=== PATIENT | female | born 1955 | race Caucasian/White ===

== ENCOUNTER 2022-12-18 06:01 | Emergency (ER) | payer BC, MEDICARE, OTHER, SELFPAY ==
[2022-12-18 06:10] VITALS: BP 149/68; PULSE 60; RESP 18; TEMP 36.5; O2SAT 97; BMI 32.3
--- NOTE | 2022-12-18 06:24 | DI.US.S_ITS ---
PROCEDURE: US ABDOMEN LIMITED INDICATIONS: RUQ TECHNIQUE: Real-time scanning was performed of the abdominal and retroperitoneal organs, with image documentation. COMPARISON: None. FINDINGS: Liver: Liver is enlarged and show heterogeneously increased liver parenchymal echotexture. Gallbladder: Multiple small stones are seen in dependent portion of gallbladder lumen. No gallbladder wall thickening or pericholecystic fluid. No sonographic Gil's sign. Biliary ducts: Intrahepatic bile ducts are non-dilated. Extrahepatic bile duct caliber measures 4.8 mm. Normal is 6-7 mm or less in diameter, or 10 mm or less post-cholecystectomy. Pancreas: Visualized portions of the pancreas are sonographically normal. IMPRESSION: 1. Cholelithiasis without sonographic evidence of acute cholecystitis. No biliary ductal dilatation. 2. Mild hepatomegaly and hepatic steatosis. Dictated by: Estrada Carias M.D. on 12/18/2022 at 8:14 Approved by: Estrada Carias M.D. on 12/18/2022 at 8:15
--- NOTE | 2022-12-18 06:25 | ED.ABDPAIN ---
HPI - Abdominal Pain <Elza Castanon DO - Last Filed: 12/18/22 18:51> General Chief Complaint: Abdominal Pain Stated Complaint: gallbladder attack Time Seen by Provider: 12/18/22 06:09 Source: patient Mode of arrival: Ambulatory History of Present Illness HPI narrative: Patient 67-year-old female history of breast cancer presenting today with right upper quadrant pain. She reports that she is previously had gallbladder attacks and she thinks that what this was. She had pain in her right upper quadrant nonradiating. Mild nausea no vomiting or fever. She reports that it has previously has gone away on its own. Tonight it lasts for about 2 hours she decided to come get checked out. She has had CTs for her breast cancer which have previously shown gallstones but he is never actually had her gallbladder checked out. She now feels silly for coming in because her pain has completely resolved. Related Data Home Medications Medication Instructions Recorded Confirmed Ciprofloxacin Hydrochloride (Cipro) ##0 07/13/10 KETOCONAZOLE (Nizoral) ##0 07/13/10 TRIAMCINOLONE 0.1% - ##0 07/13/10 (Kenalog) Allergies Allergy/AdvReac Type Severity Reaction Status Date / Time ciprofloxacin Allergy Verified 12/18/22 06:36 Sulfa (Sulfonamide Allergy Verified 12/18/22 06:36 Antibiotics) Review of Systems <DO Mohit Chicas Last Filed: 12/18/22 18:51> Review of Systems ROS Unobtainable: All systems reviewed & are unremarkable except as noted in HPI and below Patient History <DO Mohit Chicas Last Filed: 12/18/22 18:51> Social History Smoking Status: Never smoker Smoking Status: Never smoker Substance Use Type: does not use Exam <DO Mohit Chicas Last Filed: 12/18/22 18:51> Initial Vital Signs Initial Vital Signs: Vital Signs Temperature 97.7 F 12/18/22 06:10 Pulse Rate 60 12/18/22 06:10 Respiratory Rate 18 12/18/22 06:10 Blood Pressure 149/68 H 12/18/22 06:10 Pulse Oximetry 97 12/18/22 06:10 Oxygen Delivery Method Room Air 12/18/22 06:10 GENERAL: Alert very pleasant 67-year-old female and in no acute distress. HEENT: Head atraumatic,EOMI, pupils reactive, face symmetric, moist mucous membranes CARDIOVASCULAR: Regular rate and rhythm without murmurs, rubs or gallops. RESPIRATORY: Breath sounds equal bilaterally, no wheezes rales or rhonchi. ABDOMEN: Soft, mild tender right upper quadrant pain no guarding no rebound no epigastric EXTREMITIES: Normal range of motion, no clubbing or edema. Neurovascularly intact NEUROLOGICAL: Alert and oriented x4. SKIN: Warm, dry, no laceration, no petechiae, no rashes or lesions. <DO Mohit Aldridge Last Filed: 12/18/22 08:29> Initial Vital Signs Initial Vital Signs: Vital Signs Temperature 97.7 F 12/18/22 06:10 Pulse Rate 60 12/18/22 06:10 Respiratory Rate 18 12/18/22 06:10 Blood Pressure 149/68 H 12/18/22 06:10 Pulse Oximetry 97 12/18/22 06:10 Oxygen Delivery Method Room Air 12/18/22 06:10 Course <Elza Castanon DO - Last Filed: 12/18/22 18:51> Orders Ordered: Discontinued Medications Ondansetron HCl (Ondansetron 4 Mg/2 Ml Inj) 4 mg IV NOW ONE Stop: 12/18/22 06:25 Last Admin: 12/18/22 06:49 Dose: 4 mg Documented By: AP Vital Signs Vital signs: Vital Signs - 8 hr 12/18/22 06:10 12/18/22 07:56 12/18/22 07:58 Temperature 97.7 F Pulse Rate 60 46 L 45 L Respiratory Rate 18 Blood Pressure 149/68 H Pulse Oximetry 97 96 97 Oxygen Delivery Method Room Air 12/18/22 07:58 12/18/22 08:00 Temperature Pulse Rate 47 L Respiratory Rate Blood Pressure 144/65 H Pulse Oximetry 97 Oxygen Delivery Method Room Air <DO Mohit Aldridge Last Filed: 12/18/22 08:29> Orders Ordered: Discontinued Medications Ondansetron HCl (Ondansetron 4 Mg/2 Ml Inj) 4 mg IV NOW ONE Stop: 12/18/22 06:25 Last Admin: 12/18/22 06:49 Dose: 4 mg Documented By: AP Vital Signs Vital signs: Vital Signs - 8 hr 12/18/22 06:10 12/18/22 07:56 12/18/22 07:58 Temperature 97.7 F Pulse Rate 60 46 L 45 L Respiratory Rate 18 Blood Pressure 149/68 H Pulse Oximetry 97 96 97 Oxygen Delivery Method Room Air 12/18/22 07:58 12/18/22 08:00 Temperature Pulse Rate 47 L Respiratory Rate Blood Pressure 144/65 H Pulse Oximetry 97 Oxygen Delivery Method Room Air MDM - Abdominal Pain <Elza Castanon DO - Last Filed: 12/18/22 18:51> Lab Data 12/18/22 06:45 12/18/22 06:45 Labs: Lab Results 12/18/22 12/18/22 12/18/22 Range/Units 06:20 06:45 06:45 WBC 5.0 (4.5-11.0) X10^3/uL RBC 4.36 (4.0-5.2) X10^6/uL Hgb 12.7 (12.0-16.0) g/dL Hct 38.5 (36-46) % MCV 88.2 (80-100) fL MCH 29.0 (26-34) PG MCHC 32.9 (30-36) % RDW 13.8 (11.6-14.8) % Plt Count 156 (150-400) X10^3/uL Neut % (Auto) 57.2 (50-75) % Lymph % (Auto) 29.8 (25-40) % [place] % (Auto) 9.2 (3-14) % Eos % (Auto) 3.0 (2-4) % Baso % (Auto) 0.8 (0-2) % Neut # (Auto) 2800 (4214-1692) /uL Lymph # (Auto) 1500 (0296-8715) /uL [place] # (Auto) 500 (0-900) /uL Eos # (Auto) 100 (0-450) /uL Baso # (Auto) 0 (0-100) /uL Sodium 139 (137-145) mmol/L Potassium 4.0 (3.4-5.1) mmol/L Chloride 110 H (98-107) mmol/L Carbon Dioxide 22 (22-32) mmol/L BUN 16 (7-17) mg/dL Creatinine 0.69 (0.52-1.04) mg/dL Estimated GFR > 60 (>60) mL/min BUN/Creatinine Ratio 23.2 H (6-22) Glucose 120 H (80-110) mg/dL Calcium 8.9 (8.4-10.2) mg/dL Total Bilirubin 0.3 (0.2-1.3) mg/dL AST 24 (14-36) IU/L ALT 19 (<35) IU/L Alkaline Phosphatase 52 (38-126) U/L Total Protein 6.8 (6.3-8.2) g/dL Albumin 3.9 (3.5-5.0) g/dL Globulin 2.9 (1.7-4.1) g/dL Albumin/Globulin Ratio 1.3 (1.0-2.8) Lipase 158 (23-300) U/L Urine RBC 1-5/hpf (0-5/HPF) Urine WBC >100/hpf H (0-5/HPF) Ur Squamous Epith Cells 10-30 /hpf H (0-5/HPF) Urine Bacteria Many (>30) H (None) Ur Culture Indicated? Specimen cultured Point of care testing: Urine Dip Bedside Urine Glucose Negative Bedside Urine Bilirubin - Negative Bedside Urine Ketone - Negative Urine Specific [place] 1.030 Bedside Urine Occult Blood ++ Bedside Urine pH 6.0 Bedside Urine Protein - Negative Bedside Urine Urobilinogen - Negative Bedside Urine Nitrite + Positive Bedside Urine Leukocytes +++ 500 Esterase MDM Narrative Medical decision making narrative: 67-year-old female presents today with right upper quadrant pain that lasted for 2 hours and resolved. Labs and imaging pending. Signed out to Dr. Tavarez. Dr aparicio: Received turned over. Reviewed patient's history and physical exam and workup up to this point. She does have cholelithiasis without signs of acute cholecystitis on her ultrasound. Her LFTs and lipase her unremarkable. Her discomfort is much improved. She is not having any urinary symptoms. Plan to be is to discharge patient home with instructions to follow-up with general surgery to discuss an outpatient cholecystectomy. We will also wait for her urine culture to result before treating her with any antibiotics for potential urinary tract infection. She was given return precautions. She expressed understanding and agreement. <Bhavesh Aparicio, - Last Filed: 12/18/22 08:29> Lab Data Attestation: I reviewed the patient's lab results. Labs: Lab Results 12/18/22 12/18/22 12/18/22 Range/Units 06:20 06:45 06:45 WBC 5.0 (4.5-11.0) X10^3/uL RBC 4.36 (4.0-5.2) X10^6/uL Hgb 12.7 (12.0-16.0) g/dL Hct 38.5 (36-46) % MCV 88.2 (80-100) fL MCH 29.0 (26-34) PG MCHC 32.9 (30-36) % RDW 13.8 (11.6-14.8) % Plt Count 156 (150-400) X10^3/uL Neut % (Auto) 57.2 (50-75) % Lymph % (Auto) 29.8 (25-40) % [place] % (Auto) 9.2 (3-14) % Eos % (Auto) 3.0 (2-4) % Baso % (Auto) 0.8 (0-2) % Neut # (Auto) 2800 (5604-0958) /uL Lymph # (Auto) 1500 (3501-7132) /uL [place] # (Auto) 500 (0-900) /uL Eos # (Auto) 100 (0-450) /uL Baso # (Auto) 0 (0-100) /uL Sodium 139 (137-145) mmol/L Potassium 4.0 (3.4-5.1) mmol/L Chloride 110 H (98-107) mmol/L Carbon Dioxide 22 (22-32) mmol/L BUN 16 (7-17) mg/dL Creatinine 0.69 (0.52-1.04) mg/dL Estimated GFR > 60 (>60) mL/min BUN/Creatinine Ratio 23.2 H (6-22) Glucose 120 H (80-110) mg/dL Calcium 8.9 (8.4-10.2) mg/dL Total Bilirubin 0.3 (0.2-1.3) mg/dL AST 24 (14-36) IU/L ALT 19 (<35) IU/L Alkaline Phosphatase 52 (38-126) U/L Total Protein 6.8 (6.3-8.2) g/dL Albumin 3.9 (3.5-5.0) g/dL Globulin 2.9 (1.7-4.1) g/dL Albumin/Globulin Ratio 1.3 (1.0-2.8) Lipase 158 (23-300) U/L Urine RBC 1-5/hpf (0-5/HPF) Urine WBC >100/hpf H (0-5/HPF) Ur Squamous Epith Cells 10-30 /hpf H (0-5/HPF) Urine Bacteria Many (>30) H (None) Ur Culture Indicated? Specimen cultured Point of care testing: Urine Dip Bedside Urine Glucose Negative Bedside Urine Bilirubin - Negative Bedside Urine Ketone - Negative Urine Specific [place] 1.030 Bedside Urine Occult Blood ++ Bedside Urine pH 6.0 Bedside Urine Protein - Negative Bedside Urine Urobilinogen - Negative Bedside Urine Nitrite + Positive Bedside Urine Leukocytes +++ 500 Esterase Imaging Data US - abdomen: Radiologist's Impression: PROCEDURE:? US ABDOMEN LIMITED ? INDICATIONS:? RUQ ? TECHNIQUE:? Real-time scanning was performed of the abdominal and retroperitoneal organs, with image documentation.? ? COMPARISON:? None. ? FINDINGS:? ? Liver:? Liver is enlarged and show heterogeneously increased liver parenchymal echotexture. ? Gallbladder:? Multiple small stones are seen in dependent portion of gallbladder lumen.? No gallbladder wall thickening or pericholecystic fluid.? No sonographic Gil's sign. ? Biliary ducts:? Intrahepatic bile ducts are non-dilated.? Extrahepatic bile duct caliber measures 4.8 mm.? Normal is 6-7 mm or less in diameter, or 10 mm or less post-cholecystectomy.? ? Pancreas:? Visualized portions of the pancreas are sonographically normal.? ? ? IMPRESSION:? ? 1.? Cholelithiasis without sonographic evidence of acute cholecystitis.? No biliary ductal dilatation. ? 2.? Mild hepatomegaly and hepatic steatosis. MDM Narrative Medical decision making narrative: Dr aparicio: Received turned over. Reviewed patient's history and physical exam and workup up to this point. She does have cholelithiasis without signs of acute cholecystitis on her ultrasound. Her LFTs and lipase her unremarkable. Her discomfort is much improved. She is not having any urinary symptoms. Plan to be is to discharge patient home with instructions to follow-up with general surgery to discuss an outpatient cholecystectomy. We will also wait for her urine culture to result before treating her with any antibiotics for potential urinary tract infection. She was given return precautions. She expressed understanding and agreement. Discharge Plan Departure Patient Disposition: Home Clinical Impression: Abdominal pain, Cholelithiasis Instructions: Gallstones Activity Restrictions/Additional Instructions: Continue to take all of your medications as directed. Contact the general surgery department at the number provided below for follow-up and also contact your primary doctor for follow-up. Return to the emergency department for new or worsening symptoms. Prescriptions: No Action Ciprofloxacin Hydrochloride (Cipro) Qty: 0 KETOCONAZOLE (Nizoral) Qty: 0 TRIAMCINOLONE 0.1% - (Kenalog) Qty: 0 Referrals: Pedrito Person MD [Physician] - Stand Alone Forms: Patient Portal/API
[2022-12-18] MEDS: ONDANSETRON 4 MG/2 ML INJ IV (06:49)
[2022-12-18 06:54] LABS: Add Manual Diff / Slide Review NO; Basophils Absolute Auto 0 /uL (0-100); Basophils Percent Auto 0.8 % (0-2); Eosinophils Absolute Auto 100 /uL (0-450); Hematocrit 38.5 % (36-46); Hemoglobin 12.7 g/dL (12.0-16.0); Lymphocytes Absolute Auto 1500 /uL (1100-4500); Lymphocytes Percent Auto 29.8 % (25-40); Mean Corpuscular HGB Conc 32.9 % (30-36); Mean Corpuscular Volume 88.2 fL (80-100); Monocytes Absolute Auto 500 /uL (0-900); Monocytes Percent Auto 9.2 % (3-14); Neutrophils Absolute Auto 2800 /uL (1500-7000); Neutrophils Percent Auto 57.2 % (50-75); Platelet Count 156 X10^3/uL (150-400); Red Blood Cell Count 4.36 X10^6/uL (4.0-5.2); Red Cell Distribution Width 13.8 % (11.6-14.8)
[2022-12-18 06:58] LABS: Bacteria Urine Many (>30); Culture Indicated Urine Specimen Cultured; RBC Urine 1-5/HPF (0-5/HPF); Squamous Epithelial Cell Urine 10-30 /HPF (0-5/HPF); WBC Urine >100/HPF (0-5/HPF)
[2022-12-18 07:06] LABS: Alanine Aminotransferase 19 IU/L (<35); Albumin 3.9 g/dL (3.5-5.0); Albumin Globulin Ratio 1.3 (1.0-2.8); Alkaline Phosphatase 52 U/L (38-126); Aspartate Aminotransferase 24 IU/L (14-36); BUN Creatinine Ratio 23.2 (6-22); Bilirubin Total 0.3 mg/dL (0.2-1.3); Blood Urea Nitrogen 16 mg/dL (7-17); Calcium 8.9 mg/dL (8.4-10.2); Carbon Dioxide 22 mmol/L (22-32); Chloride 110 mmol/L (98-107); Estimated Glomerular Filt Rate > 60 mL/min (>60); Globulin 2.9 g/dL (1.7-4.1); Glucose 120 mg/dL (80-110); HEMOLYSIS < 15 (0-50); Lipase 158 U/L (23-300); Sodium 139 mmol/L (137-145); Total Protein 6.8 g/dL (6.3-8.2)
[2022-12-18 07:56] VITALS: PULSE 46; O2SAT 96
[2022-12-18 07:58] VITALS: BP 144/65; PULSE 45; O2SAT 97
[2022-12-18 08:00] VITALS: PULSE 47; O2SAT 97
[2022-12-18 08:30] VITALS: PULSE 49; O2SAT 95
[2022-12-18 08:33] VITALS: BP 133/64; PULSE 49; TEMP 36.7; O2SAT 97
== END 2022-12-18 08:39 | disposition home or self-care (01) ==
PROVIDERS: Emergency Medicine; Emergency Provider Emergency Medicine
DX: K80.20 Calculus of gallbladder without cholecystitis without obstruction (principal); B96.20 Unspecified Escherichia coli [E. coli] as the cause of diseases classified elsewhere
CPT/HCPCS: 76705; 80053; 81003; 81015; 83690; 85025; 87077; 87086; 87186; 96374; 99284; J2405

== ENCOUNTER → 2023-09-28 14:09 | Outpatient (CLI) | payer MEDICARE, OTHER, SELFPAY ==
--- NOTE | 2023-09-28 14:13 | DI.US.S_ITS ---
PROCEDURE: US PERIPH VENOUS LOW EXTREM RT INDICATIONS: mass in lower TECHNIQUE: Real-time imaging, as well as color and pulse Doppler interrogation, were performed of the lower extremity deep veins from the inguinal ligament to the popliteal fossa, with documentation of the visualized calf veins. COMPARISON: None. FINDINGS: The common femoral, femoral, popliteal, and the visualized calf veins are normally compressible, and free of intraluminal thrombus. Color and pulse Doppler demonstrate normal phasic intraluminal flow. There is normal augmentation response to distal compression maneuver. Incidentally, there is superficial thrombus noted in a superficial venous varicosity in the mid to distal calf IMPRESSION: No evidence of deep venous thrombosis, right lower extremity. Superficial venous varicosity thrombosis Approved by: Mauro Ross M.D. on 09/28/2023 at 18:03
== END ==
PROVIDERS: Referring Provider Nurse Practitioner Family; Visit Provider Nurse Practitioner Family
DX: I82.811 Embolism and thrombosis of superficial veins of right lower extremity (principal); R22.41 Localized swelling, mass and lump, right lower limb
CPT/HCPCS: 93971

== ENCOUNTER → 2023-10-18 09:10 | Outpatient (CLI) | payer MEDICARE, OTHER, SELFPAY | PROVIDERS: PCP Family Medicine; Visit Provider Family Medicine | DX: R31.29 Other microscopic hematuria (principal) | CPT/HCPCS: 87086 ==

== ENCOUNTER → 2023-10-21 11:27 | Outpatient (CLI) | payer MEDICARE, OTHER, SELFPAY ==
--- NOTE | 2023-10-21 11:28 | DI.RAD.S_ITS ---
PROCEDURE: XR DEXA AXIAL SKELETON INDICATIONS: post menopausal COMPARISON: None. FINDINGS: Lumbar Spine: Bone mineral density 0.837 g/cm2, T score -1.9. Left Hip: Bone mineral density 0.804 g/cm2, T score -1.1. Left Femoral Neck: Bone mineral density 0.713 g/cm2, T score -1.2. Right Hip: Bone mineral density 0.816 g/cm2, T score -1.0. Right Femoral Neck: Bone mineral density 0.783 g/cm2, T score -0.6. Fracture Risk Calculation (when applicable): 10-year fracture risk of a major osteoporotic fracture 8.0% and of a hip fracture 0.7%. (T score greater or equal to -1.0 to: NORMAL) (T score from -1.1 to -2.4: OSTEOPENIA) (T score less than or equal to -2.5: OSTEOPOROSIS) IMPRESSION: Osteopenia Follow-up guidelines as follows: Osteoporosis: Consider a repeat DEXA and Vertebral Fracture Assessment (VFA) exam in 2 years or sooner if medically necessary, to reassess this patient's status. Osteopenia: Consider a repeat DEXA in 2-3 years to reassess this patient's status, or if there is a new clinical indication. Normal: Consider a repeat DEXA in 5 years or sooner, or if there is a new clinical indication. All treatment decisions require clinical judgment and consideration of individual patient factors, including patient preferences, comorbidities, previous drug use, risk factors not captured in the FRAX model (e.g., frailty, falls, vitamin D deficiency, increased bone turnover, interval significant decline in bone density ) and possible under- or over-estimation of fracture risk by FRAX. In addition, the NOF Guide recommends that FDA-approved medical therapies be considered in postmenopausal women and men age >= 50 years with a: * Hip or vertebral (clinical or morphometric) fracture * T-score of <=-2.5 at the spine or hip * Ten-year fracture probability by FRAX of >= 3% for hip fracture or >=20% for major osteoporotic fracture. People with diagnosed cases of osteoporosis or at high risk for fracture should have regular bone mineral density tests. For patients eligible for Medicare, routine testing is allowed once every 2 years. The testing frequency can be increased to one year for patients who have rapidly progressing disease, those who are receiving or discontinuing medical therapy to restore bone mass, or have additional risk factors. Dictated by: Emmanuel Harvey M.D. on 10/21/2023 at 15:02 Approved by: Emmanuel Harvey M.D. on 10/21/2023 at 15:04
== END ==
LOC: RAD 11:28
PROVIDERS: PCP Family Medicine; Referring Provider Family Medicine; Visit Provider Family Medicine
DX: M85.88 Other specified disorders of bone density and structure, other site (principal); Z78.0 Asymptomatic menopausal state
CPT/HCPCS: 77080

== ENCOUNTER 2023-10-26 02:50 | Emergency (ER) | payer MEDICARE, OTHER, SELFPAY ==
[2023-10-26 03:00] VITALS: BP 146/63; PULSE 70; RESP 18; TEMP 36.1; O2SAT 97; BMI 33.5
--- NOTE | 2023-10-26 03:03 | ED_ITS ---
HPI - General Adult General Chief complaint: Abdominal Pain Stated complaint: gall bladder attack Time Seen by Provider: 10/26/23 02:56 History of Present Illness HPI narrative: 67-year-old woman with a history of breast cancer metastatic currently in remission undergoing workup for thickened endometrial wall and known gallbladder disease scheduled for cholecystectomy on December 13 presents with an acute gallbladder attack this evening. She states that she had salad with chicken earlier this evening. But 130 she awoke from sleep with severe epigastric to right upper quadrant pain that is her typical gallbladder symptoms. Significant nausea but no vomiting this time. No fevers, chills, constipation or diarrhea. No chest pain no recent cough or shortness a breath. She took some Alleve in his finding that it is beginning to take effect as she is being further evaluated in the emergency department Related Data Home Medications Medication Instructions Recorded Confirmed serrapeptase PO DAILY 10/13/23 10/20/23 tamoxifen 10 mg tablet 10 mg PO ONCE 10/13/23 10/20/23 Previous Rx's Medication Instructions Recorded oxycodone-acetaminophen 5 mg-325 1 tab PO Q6H PRN pain #10 tabs 10/26/23 mg tablet Allergies Allergy/AdvReac Type Severity Reaction Status Date / Time Sulfa (Sulfonamide Allergy Severe Rash Verified 10/20/23 14:36 Antibiotics) ciprofloxacin Allergy Verified 10/20/23 14:36 Review of Systems Review of Systems Narrative: Pertinent positive and negative findings as per HPI Patient History Medical History Use of tamoxifen (Nolvadex) Postmenopausal bleeding Abnormal uterine bleeding (AUB) Microscopic hematuria Surgical History History of tonsillectomy Social History Smoking Status: Never smoker Smoking Status: Never smoker Substance Use Type: does not use Exam Initial Vital Signs Initial Vital Signs: Vital Signs Temperature 97 F L 10/26/23 03:00 Pulse Rate 70 10/26/23 03:00 Respiratory Rate 18 10/26/23 03:00 Blood Pressure 146/63 H 10/26/23 03:00 Pulse Oximetry 97 10/26/23 03:00 Oxygen Delivery Method Room Air 10/26/23 03:00 General: Healthy appearing, in no acute distress. Able to give a complete and coherent history. Well-nourished well-developed HEENT: Moist mucous membranes, normal sclera with reactive pupils, Respiratory: Lungs are clear to auscultation, no wheezing no rales no rhonchi. Full and symmetrical air movement Cardiac: Regular rate and rhythm no murmurs no bruits Abdomen: Soft, minimal epigastric tenderness without rebound or guarding. No flank pain Skin: Warm and dry, no rashes Neurologic: Grossly neurologically intact with no obvious asymmetries or abnormalities Extremities: No trauma, well perfused Psych: Cooperative, appropriate insight and affect Course Orders Ordered: ED Orders 10/26/23 03:08 Urinalysis and Microscopic Stat 10/26/23 03:15 Complete Blood Count AUTO DIFF Stat Comprehensive Metabolic Panel Stat Lipase Stat Hydromorphone HCl (Hydromorphone 0.5 Mg Inj) 0.5 mg IV Q15MIN PRN PRN Reason: Pain, Last Admin: 10/26/23 03:12 Dose: 0.5 mg Documented By: BRENDA Sodium Chloride (Normal Saline 0.9%) 1,000 mls @ 1,000 mls/hr IV BOLUS ONE Stop: 10/26/23 04:06 Last Admin: 10/26/23 03:12 Dose: 1,000 mls/hr Documented By: BRENDA Ondansetron HCl (Ondansetron 4 Mg/2 Ml Inj) 4 mg IV NOW PRN PRN Reason: nausea Last Admin: 10/26/23 03:12 Dose: 4 mg Documented By: BRENDA Vital Signs Vital signs: Vital Signs - 8 hr 10/26/23 03:00 Temperature 97 F L Pulse Rate 70 Respiratory Rate 18 Blood Pressure 146/63 H Pulse Oximetry 97 Oxygen Delivery Method Room Air Medical Decision Making Lab Data 10/26/23 03:15 10/26/23 03:15 Labs: Urine Dip Bedside Urine Glucose Negative Bedside Urine Bilirubin - Negative Bedside Urine Ketone - Negative Urine Specific [place] 1.020 Bedside Urine Occult Blood +/- Bedside Urine pH 5.5 Bedside Urine Protein - Negative Bedside Urine Urobilinogen - Negative Bedside Urine Nitrite - Negative Bedside Urine Leukocytes +++ 500 Esterase Point of care testing: Urine Dip Bedside Urine Glucose Negative Bedside Urine Bilirubin - Negative Bedside Urine Ketone - Negative Urine Specific [place] 1.020 Bedside Urine Occult Blood +/- Bedside Urine pH 5.5 Bedside Urine Protein - Negative Bedside Urine Urobilinogen - Negative Bedside Urine Nitrite - Negative Bedside Urine Leukocytes +++ 500 Esterase MDM Narrative Medical decision making narrative: CC: Gallbladder pain Complicating co-morbidities: Known gallstones, scheduled for cholecystectomy December 13 Data collected from: patient Differential considered: Gallbladder colic, coli cystitis, perforating ulcer, gastric ulcer, constipation, gastroenteritis Exam documented above, pertinent findings include: Mild epigastric to right upper quadrant tenderness without rebound or guarding remainder of exam is benign Lab Test results independently reviewed as above. Pertinent findings: CBC is unremarkable Chemistries are reassuring with no elevated bilirubin or liver enzymes Treatments: A L of fluid, Discussion: 67-year-old woman with known gallbladder disease scheduled for laparoscopic cholecystectomy on December 13 with gallbladder attack this evening. She had taken a leave prior to arrival and symptoms were improving at time of arrival. Lab work is reassuring without any evidence of acute cholecystitis. Pain is significantly improved with otherwise minimal intervention on my part. We talked about as low fat diet she is willing to tolerate, using Alleve for pain and adding an oxycodone to that if pain is severe. Also reiterated the importance of returning to the emergency department with fevers, unrelenting pain, new symptoms or additional concerns. Questions are answered and she is safe for Discharge Plan Departure Patient Disposition: Home Clinical Impression: Cholelithiasis Qualifiers: Cholelithiasis location: gallbladder Cholecystitis presence: without cholecystitis Biliary obstruction: without biliary obstruction Qualified Code(s): K80.20 - Calculus of gallbladder without cholecystitis without obstruction Instructions: DI for Gallstones Activity Restrictions/Additional Instructions: Thank you for coming in today I believe this was your gallstones that were causing the initial pain however it does look like your gallbladder has relaxed in the gallstones settled back down. Your pain has responded nicely to the Alleve that you took prior to arrival. Your blood work does not show signs of infection or obstruction, the 2 things that we look for that would make an emergent gallbladder removal required. Using 400 mg of ibuprofen (2 [id number] pills) and 1 Tylenol every 6 hours can be very helpful in controlling pain. Alleve has also been effective for you and you can choose that over ibuprofen. For severe pain you can add 1 oxycodone to either ibuprofen or Aleve. Oxycodone is a narcotic, has a potential for addiction and will cause constipation. If it allows you to stay at home for the couple of hours that your gallbladder is painful than it is safe. Again if you are having increasing pain, fevers, uncontrolled vomiting or new symptoms you do need to return to the emergency department If your gallbladder attacks are becoming more frequent and or more intense, please feel free to contact your surgeon and see if they might be able to move up your scheduled outpatient cholecystectomy. Prescriptions: New oxycodone-acetaminophen 5-325 mg tablet 1 tab PO Q6H PRN (Reason: pain) Qty: 10 0RF No Action tamoxifen 10 mg tablet 10 mg PO ONCE serrapeptase PO DAILY Referrals: Chloé Mistry MD [Primary Care Provider] - Stand Alone Forms: Patient Portal/API
[2023-10-26] MEDS: SODIUM CHLORIDE 0.9% 1,000 ML 1000 ML IV (03:12)
[2023-10-26] MEDS: ONDANSETRON 4 MG/2 ML INJ IV (03:12)
[2023-10-26] MEDS: HYDROMORPHONE 0.5 MG INJ IV (03:12)
[2023-10-26 03:24] LABS: Add Manual Diff / Slide Review NO; Basophils Absolute Auto 0 /uL (0-100); Basophils Percent Auto 0.6 % (0-2); Eosinophils Absolute Auto 200 /uL (0-450); Eosinophils Percent Auto 2.6 % (2-4); Hematocrit 37.3 % (36-46); Hemoglobin 12.4 g/dL (12.0-16.0); Lymphocytes Absolute Auto 2600 /uL (1100-4500); Lymphocytes Percent Auto 39.3 % (25-40); Mean Corpuscular HGB Conc 33.2 % (30-36); Mean Corpuscular Hemoglobin 28.9 PG (26-34); Mean Corpuscular Volume 87.1 fL (80-100); Monocytes Absolute Auto 500 /uL (0-900); Monocytes Percent Auto 7.5 % (3-14); Neutrophils Absolute Auto 3300 /uL (1500-7000); Platelet Count 189 X10^3/uL (150-400); Red Blood Cell Count 4.28 X10^6/uL (4.0-5.2); Red Cell Distribution Width 13.6 % (11.6-14.8); White Blood Cell Count 6.6 X10^3/uL (4.5-11.0)
[2023-10-26 03:29] VITALS: BP 117/60; PULSE 58; O2SAT 95
[2023-10-26 03:33] LABS: Alanine Aminotransferase 18 IU/L (<35); Albumin Globulin Ratio 1.5 (1.0-2.8); Alkaline Phosphatase 45 U/L (38-126); Aspartate Aminotransferase 32 IU/L (14-36); BUN Creatinine Ratio 27.3 (6-22); Bilirubin Total 0.5 mg/dL (0.2-1.3); Blood Urea Nitrogen 24 mg/dL (7-17); Calcium 8.8 mg/dL (8.4-10.2); Carbon Dioxide 24 mmol/L (22-32); Chloride 109 mmol/L (98-107); Estimated Glomerular Filt Rate > 60 mL/min (>60); Globulin 2.7 g/dL (1.7-4.1); Glucose 107 mg/dL (80-110); HEMOLYSIS 43 (0-50); Lipase 75 U/L (23-300); Potassium 4.1 mmol/L (3.4-5.1); Sodium 139 mmol/L (137-145); Total Protein 6.7 g/dL (6.3-8.2)
[2023-10-26 03:53] VITALS: RESP 16
== END 2023-10-26 03:54 | disposition home or self-care (01) ==
PROVIDERS: Emergency Provider Emergency Medicine; PCP Family Medicine
DX: K80.20 Calculus of gallbladder without cholecystitis without obstruction (principal)
CPT/HCPCS: 80053; 81003; 83690; 85025; 96361; 96374; 96375; 99283; 99284; J1170; J2405

== ENCOUNTER 2023-12-14 06:26 | Day surgery (SDC) | payer MEDICARE, OTHER, SELFPAY ==
[2023-12-09 14:30] VITALS: BMI 34.2
[2023-12-14] VITALS (7 sets, daily range): BP systolic 104–131; BP diastolic 58–72; PULSE 60–73; RESP 10–24; TEMP 36.4–36.7; O2SAT 91–96; BMI 33.4
--- NOTE | 2023-12-14 | PATH_ITS ---
[facility] Accession Number: [id number] No. of containers..02 Tissue . 01 Material submitted: . PART A: endometrium - ENDOMETRIAL CURETTINGS PART B: gallbladder - GALLBLADDER . 01 Diagnosis: A. ENDOMETRIAL CURETTINGS: Portions of atypical squamous and metaplastic squamous mucosa, favor a reactive etiology. No definite, well-preserved endometrial tissue identified. Scant glandular elements; negative for significant atypia. Please see comment. . B. GALLBLADDER: Gallbladder with mild chronic cholecystitis, cholelithiasis, and cholesterolosis. [facility] 12/16/2023 1612 Local . 01 Comment: A. Due to the scant nature of endometrial tissue in this biopsy, it may not be entirely enrollment eligibility representative of this patient's endometrium; additional sampling could be considered, if clinically appropriate. . 01 Electronically signed: . Kelsey Springer MD, Pathologist NPI- [id number] . 01 Gross description: . A. Received in formalin with two identifiers and endometrial curetting, are multiple red-brown soft tissue fragments admixed with mucohemorrhagic material aggregating to 2.2 x 0.7 x 0.1 cm. Filtered and submitted entirely in cassette A1. B. Received in formalin with no identifiers (authorization form received) and no site on jar, is an intact gallbladder 11.6 x 5.1 x 4.7 cm with an unremarkable external surface. The cystic duct margin is inked blue, and no pericystic lymph node is identified. The lumen contains numerous brown faceted calculi measuring up to 0.4 cm in greatest dimension admixed with green viscous bile. The mucosa is green and velvety with yellow areas of dicolorration and no polyps or lesions identified. The mendoza average 0.1 cm thick. Pipeline Maintenance Supervisor sections to include the cystic duct margin and full thickness sections are submitted in cassette B1. ([id number]) /JAY 12/15/2023 0936 Local . 01 Pathologist provided ICD-10: N85.00, K81.1, K80.60 . 01 CPT . 408364, 338573 Specimen Comment: A courtesy copy of this report has been sent to [phone] Performed at: [address] [facility] [address], [place], [place] [id number] MD Shalom Thornton MD Phone: [phone]
--- NOTE | 2023-12-14 07:12 | P.HPOB_ITS ---
History of Present Illness History of Present Illness Reason for admission: vaginal bleeding Narrative: Ayala Noel is a 68 year old postmenopausal female currently on SERM therapy who presents for definitive surgical sampling of endometrium secondary to insufficient embx in office on 10/20/23. Pt met in preoperative area this AM, states she has had no further vaginal bleeding, denies significant changes in personal or family health since time of last encounter. Procedure scheduled today to coincide with acute general surgery laparoscopic cholecystectomy. [facility] Medical History Use of tamoxifen (Nolvadex) Postmenopausal bleeding Abnormal uterine bleeding (AUB) Microscopic hematuria Surgical History History of tonsillectomy Social History household members: spouse Smoking Status: Never smoker alcohol intake: former Meds Home Medications and Allergies Home Medications Medication Instructions Recorded Confirmed Type serrapeptase 20,000 mg PO DAILY 10/13/23 12/14/23 History tamoxifen 10 mg tablet 10 mg PO ONCE 10/13/23 12/14/23 History oxycodone-acetaminophen 5 mg-325 1 tab PO Q6H PRN pain #10 tabs 10/26/23 12/14/23 Rx mg tablet Allergies Allergy/AdvReac Type Severity Reaction Status Date / Time Sulfa (Sulfonamide Allergy Severe Rash Verified 12/14/23 06:42 Antibiotics) ciprofloxacin Allergy Verified 12/14/23 06:42 Review of Systems Review of Systems ROS: Yes All systems reviewed with the patient and are negative except as otherwise documented Exam Vital Signs (past 8 hours): - 12/14/23 06:46 Temperature 97.6 F Pulse Rate 60 Respiratory Rate 17 Blood Pressure 131/72 Pulse Oximetry 96 Oxygen Delivery Method Room Air Oxygen Delivery Method Room Air Const General: cooperative, comfortable and No acute distress Nutritional Appearance: obese Orientation: alert, awake and oriented x3 Limitations: mental status not altered Resp Effort & Inspection: normal respiratory effort Cardio Pulses: normal peripheral pulses Other: deferred per shared decision making with patient Skin General: no rashes or lesions noted Psych Mental Status: mental status grossly normal Judgment: judgment good Assessment & Plan Assessment and plan (1) Postmenopausal bleeding: Status: Acute (2) Use of tamoxifen (Nolvadex): Status: Acute Plan 68yo postmenopausal female presents for scheduled procedure, definitive surgical sampling of endometrium secondary to postmenopausal bleeding on SERM therapy, insufficient outpatient biopsy Pt affirms desire to proceed with procedure as scheduled risks, benefits and alternatives to procedure reviewed; informed consent completed for exam under anesthesia, dilation and curettage anticipate dc to home pending recovering from planned concomitant lap shant Time-Based Coding :: 20 spent with patient and on the chart (including review of chart, obtaining history, exam, reviewing outside data, placing orders, documenting exam and treatment plan, and counseling patient) on 12/14/23.
--- NOTE | 2023-12-14 07:12 | PM.PREOP ---
Pre-operative Note Interval Note History & Physical reviewed/Exam performed by Physician: Yes Changes to H&P: No H&P completed within 30 days and has changed as indicated here:: 12/14/23
[2023-12-14] MEDS: LACTATED RINGERS 1,000 ML 42 ML IV (07:18)
[2023-12-14] MEDS: ACETAMINOPHEN 325 MG TABLET 975 MG PO (07:21)
--- NOTE | 2023-12-14 07:41 | P.HP_ITS ---
History of Present Illness History of Present Illness Date Patient Seen: 12/14/23 Time Patient Seen: 07:41 Chief complaint: Lap Trinh w/Raza & Hysteroscopy D&C w/Torsten Narrative: Hellen is a 68 year old woman with symptomatic cholelithiasis. See office note for details. [facility] Medical History Use of tamoxifen (Nolvadex) Postmenopausal bleeding Abnormal uterine bleeding (AUB) Microscopic hematuria Surgical History History of tonsillectomy Social History household members: spouse Smoking Status: Never smoker alcohol intake: former Meds Home Medications and Allergies Home Medications Medication Instructions Recorded Confirmed Type serrapeptase 20,000 mg PO DAILY 10/13/23 12/14/23 History tamoxifen 10 mg tablet 10 mg PO ONCE 10/13/23 12/14/23 History oxycodone-acetaminophen 5 mg-325 1 tab PO Q6H PRN pain #10 tabs 10/26/23 12/14/23 Rx mg tablet Allergies Allergy/AdvReac Type Severity Reaction Status Date / Time Sulfa (Sulfonamide Allergy Severe Rash Verified 12/14/23 06:42 Antibiotics) ciprofloxacin Allergy Verified 12/14/23 06:42 Exam Vital Signs (past 8 hours): - 12/14/23 06:46 Temperature 97.6 F Pulse Rate 60 Respiratory Rate 17 Blood Pressure 131/72 Pulse Oximetry 96 Oxygen Delivery Method Room Air Oxygen Delivery Method Room Air Const General: No acute distress Resp Effort & Inspection: normal respiratory effort Assessment & Plan Assessment and plan (1) Symptomatic cholelithiasis: Status: Acute Plan We reviewed the risks and benefits and she would like to proceed with laparoscopic cholecystectomy. Time-Based Coding :: [TOTAL MINUTES] spent with patient and on the chart (including review of chart, obtaining history, exam, reviewing outside data, placing orders, documenting exam and treatment plan, and counseling patient) on [DATE].
[2023-12-14] MEDS: CEFAZOLIN 2 GM/100 ML PREMIX 100 ML IV (07:43)
--- NOTE | 2023-12-14 08:00 | SUR.OPER ---
Lithotomy on padded OR bed, head on pillow, arms secured on padded arm boards at <90 degrees abduction. Legs secured in padded yellow fins stirrups. Following the dilation and curettage the patient was placed in lap shant position: Supine on padded OR bed, head on pillow, safety belt at thigh, left arm padded and tucked at side. Right arm secured on padded arm board <90 degrees abduction. Legs uncrossed. Padded footboard in place. Tape over blanket to secure lower legs.
--- NOTE | 2023-12-14 08:13 | PM.OP.1 ---
Operative Date/Time/Diagnoses Date of procedure: 12/14/23 Time of procedure: 07:45 Pre-op diagnosis: postmenopausal bleeding on SERM therapy Post-op diagnosis: same Procedure & Clinicians Procedure: exam under anesthesia, dilation and curettage Same procedure as scheduled: Yes Indications: postmenopausal bleeding on SERM therapy, insufficient office endometrial biopsy Surgeon: Valery Sarmiento Click Yes if Unassisted: Yes Anesthesia Type: General Operative Notes Findings: normal external female genitalia, vagina parous atrophic cervix, stenosis of endocervical canal Closure Type: not applicable Specimen(s): other (endometrial curettings ) Estimated Blood Loss (mL): 5 Blood products transfused: none Procedure in detail: Pt was taken to the operating room, transferred to OR table and anesthesia was induced with placement of ETT.? Pt had her legs placed in Taras stirrups and an exam under anesthesia was performed. The patient was prepped and draped in a sterile fashion.? A time out was performed. ?The bladder was emptied via straight catheter in sterile fashion.? A sterile speculum was inserted into the vagina.? The cervix was visualized and grasped anteriorly using a single tooth tenaculum.? The uterus sounded to 11cm and the cervical os was serially dilated using Forman dilators up to 17f to allow for passage of the curette. The uterus was sharply curetted until a gritty texture was noted throughout, tissue specimen passed off the field for permanent study.? The tenaculum was removed and hemostasis was noted at insertion sites.? The speculum was removed and hemostasis was again noted to be excellent.? The patient then had her legs taken out of stirrups.? The patient tolerated the procedure well and without difficulty.? Remainder of operative course per Dr. Person's documentation Complications: none Post-operative Condition: stable Disposition: other
[2023-12-14] MEDS: SILVER NITRATE STICK 2 EACH TOP (08:14)
[2023-12-14] MEDS: BUPIVACAINE 0.5% (PF) 30 ML, EPINEPHrine 0.15 MG INJ (08:17)
--- NOTE | 2023-12-14 09:22 | P.OP_ITS ---
Operative Date/Time/Diagnoses Date of procedure: 12/14/23 Time of procedure: 09:22 Pre-op diagnosis: Symptomatic cholelithiasis Post-op diagnosis: same Procedure & Clinicians Procedure: Laparoscopic cholecystectomy Same procedure as scheduled: Yes Surgeon: Pedrito Person Necktie Operator Pockets And Pieces: Mor Parsons Anesthesia Type: General Operative Notes Procedure in detail: The patient was given preoperative antibiotics. The patient was brought to the operating room and placed on the table in the supine position. General endotracheal anesthesia was induced. The abdomen was prepped and draped. A time-out was performed. We made a 1 cm infraumbilical incision. We dissected down to the base of the umbilical stalk using cautery. We grasped the umbilical stalk with a Dakotah clamp to elevate the abdominal wall. We scored the fascia in the midline with cautery. We pierced the peritoneum with a Peon clamp. The Berkley port was placed and the abdomen was insufflated to 15 mmHg. A 5 mm 30 degree laparoscopic was inserted. There was no evidence of any injury from the entry. Next, we placed 5 mm ports in the subxiphoid position and right upper quadrant at the midclavicular line and anterior axillary line. The patient was then positioned in reverse Trendelenburg and the table was tilted to the left. The gallbladder was grasped at the dome and retracted cephalad. There were adhesions of omentum and transverse colon to the anterior portion of the gallbladder. The adhesions were carefully divided with judicious use of cautery. We then dissected the cystic structures with a combination of hook cautery and blunt dissection. We obtained a critical view. We placed clips on the cystic duct and artery and divided the cystic duct and artery sharply between the clips. The gallbladder was then dissected off the liver and placed in a specimen retrieval bag. We irrigated the right upper quadrant and all the aspirate returned clear. We then removed the 5 mm ports under direct vision we removed the Berkley port. We then injected some local into the fascia and closed the fascia with 2 interrupted 0 Vicryl sutures. The skin incisions were closed with 4-0 Monocryl and Steri-Strips were applied. Band-Aids were applied over the Steri-Strips. EBL: 50 mL Specimen: Gallbladder and contents Post-operative Condition: stable Disposition: PACU
[2023-12-14] MEDS: ONDANSETRON 4 MG/2 ML INJ IV (09:51)
[2023-12-14] MEDS: hydrOXYzine 50 MG/ML INJ 25 MG IM (10:24)
[2023-12-14] MEDS: ePHEDrine 50 MG/ML VIAL 25 MG IM (10:26)
== END 2023-12-14 10:45 | disposition home or self-care (01) ==
PROVIDERS: Obstetrics & Gynecology; PCP Family Medicine; Referring Provider Surgery; Visit Provider Surgery
PROC: 0UDB8ZZ Extraction of Endometrium, Via Natural or Artificial Opening Endoscopic (ICD-10-PCS; CPT 58558; principal; 2023-12-14 07:45)
PROC: 0FT44ZZ Resection of Gallbladder, Percutaneous Endoscopic Approach (ICD-10-PCS; CPT 47562; 2023-12-14 07:45)
DX: K80.10 Calculus of gallbladder with chronic cholecystitis without obstruction (principal); Z79.810 Long term (current) use of selective estrogen receptor modulators (SERMs); N95.0 Postmenopausal bleeding
CPT/HCPCS: 47562; 58120; J0171; J0330; J0690; J1100; J1170; J2405; J2704; J3410

== ENCOUNTER 2023-12-19 09:33 | Observation (INO) | payer MEDICARE, OTHER, SELFPAY ==
[2023-12-19] VITALS (17 sets, daily range): BP systolic 124–178; BP diastolic 58–81; PULSE 62–80; RESP 16–41; TEMP 36.3–37.2; O2SAT 91–98; BMI 33.4
--- NOTE | 2023-12-19 09:57 | EKG_ITS ---
[facility] [id number] [address] [place] [id number] Test Date: 2023-12-19 Pat Name: Ayala Noel Department: [facility] Room: Gender: Female Birthing Nurse: CHILANGO : 1955 Requested By: Order Number: [id number] Reading MD: Taras Alfonso Measurements Intervals [place] Rate: 71 P: 38 MD: 130 QRS: 7 QRSD: 88 T: 24 QT: 392 QTc: 425 Interpretive Statements Normal sinus rhythm Minimal voltage criteria for LVH, may be normal variant ( R in aVL ) Electronically Signed On 12-20-2023 7:26:13 PDT by Taras Alfonso
[2023-12-19 10:11] LABS: Add Manual Diff / Slide Review NO; Basophils Absolute Auto 0 /uL (0-100); Basophils Percent Auto 0.4 % (0-2); Eosinophils Absolute Auto 100 /uL (0-450); Eosinophils Percent Auto 1.1 % (2-4); Hematocrit 41.5 % (36-46); Hemoglobin 13.5 g/dL (12.0-16.0); Lymphocytes Absolute Auto 1700 /uL (1100-4500); Lymphocytes Percent Auto 14.3 % (25-40); Mean Corpuscular HGB Conc 32.6 % (30-36); Mean Corpuscular Hemoglobin 28.6 PG (26-34); Mean Corpuscular Volume 87.7 fL (80-100); Monocytes Absolute Auto 500 /uL (0-900); Monocytes Percent Auto 4.3 % (3-14); Neutrophils Absolute Auto 9700 /uL (1500-7000); Neutrophils Percent Auto 79.9 % (50-75); Platelet Count 120 X10^3/uL (150-400); Red Blood Cell Count 4.73 X10^6/uL (4.0-5.2); Red Cell Distribution Width 13.6 % (11.6-14.8); White Blood Cell Count 12.2 X10^3/uL (4.5-11.0)
--- NOTE | 2023-12-19 10:13 | ED_ITS ---
HPI - Abdominal Pain General Chief Complaint: Abdominal Pain Stated Complaint: Post OP pain Time Seen by Provider: 12/19/23 09:59 Source: patient Mode of arrival: Ambulatory History of Present Illness HPI narrative: patient is a 68-year-old female who is status post cholecystectomy and dilation and curettage 12/14/2023, who presents to the ED for evaluation of diffuse abdominal pain. Patient was sent in by PCP for worsening abdominal pain. Patient has already contacted PCP prior and was discharged home with additional analgesics, however patient having persistent nausea abdominal pain and was sent in for further evaluation treatment. Patient states that it started spontaneously nothing making it better or worse. Has had decreased p.o. intake secondary to the pain. She has currently denying any trauma or falls not on any blood thinners no headache visual disturbances chest pain shortness of breath fever chills or any other GI/ symptoms at this time. Review of records show that patient did have surgery with Dr. Raza murrell and Dr. Torsten Rasmussen on 12/14/2023. Related Data Home Medications Medication Instructions Recorded Confirmed serrapeptase 20,000 mg PO DAILY 10/13/23 12/19/23 tamoxifen 10 mg tablet 10 mg PO ONCE 10/13/23 12/19/23 cholecalciferol (vitamin D3) 50 50 mcg PO DAILY 12/19/23 12/19/23 mcg (2,000 unit) capsule (Vitamin D3) multivitamin 1 tab PO DAILY 12/19/23 12/19/23 Previous Rx's Medication Instructions Recorded hydrocodone 5 mg-acetaminophen 325 1 tab PO Q8H PRN pain #10 tabs 12/14/23 mg tablet Allergies Allergy/AdvReac Type Severity Reaction Status Date / Time Sulfa (Sulfonamide Allergy Severe Rash Verified 12/14/23 06:42 Antibiotics) ciprofloxacin Allergy Verified 12/14/23 06:42 Review of Systems Review of Systems Narrative: HEENT: Denies headache, eye drainage, eye irritation, head trauma, sore throat, voice change Cardiovascular: Denies any chest pain, palpitations, shortness of breath, tachycardia Respiratory: Denies any shortness of breath, cough, wheeze, stridor GI/: Denies any, vomiting, diarrhea, bright red blood per rectum, melanotic stools, urinary frequency, urinary retention, dysuria, hematuria. Positive for abdominal pain and nausea MSK: Denies any joint pain, muscle pains, swelling Skin: Denies any rashes, lesions, discoloration Neuro: Denies any headache, lightheadedness, dizziness, fainting, weakness Psych: Denies SI/HI Patient History Medical History Use of tamoxifen (Nolvadex) Postmenopausal bleeding Abnormal uterine bleeding (AUB) Microscopic hematuria Surgical History History of tonsillectomy Social History household members: spouse Smoking Status: Never smoker alcohol intake: former Smoking Status: Never smoker alcohol intake frequency: holidays/special occasions only Substance Use Type: does not use Exam Narrative Exam Narrative: General: Cooperative, comfortable, well-developed, not in acute distress HEENT: Normocephalic, atraumatic, PERRLA, normal sclera, eyelids normal, Neck: Active full range of motion, atraumatic Chest: Normal to inspection, negative crepitus, no overlying erythema ecchymosis Respiratory: Normal respiratory effort, not in acute respiratory distress, clear to auscultation bilaterally negative cough, wheeze, tachypnea, rhonchi, rales Cardiology: Regular rate rhythm negative gallop, murmur, rubs GI/: Normal to inspection, soft, nonrigid, exam deferred. mild ecchymosis noted to the umbilical area consistent with recent cholelithiasis, non peritoneal nature but diffuse tenderness to palpation MSK: Full range of active range of motion of all 4 extremities, atraumatic Skin: No rashes lesions noted Neuro: Alert awake oriented x3, moves all 4 extremities spontaneously, cranial nerves intact, able to answer all questions appropriately follows commands appropriately Psych: Cooperative, negative suicidal or homicidal ideations Initial Vital Signs Initial Vital Signs: Vital Signs Temperature 98.9 F 12/19/23 09:43 Pulse Rate 69 12/19/23 09:43 Respiratory Rate 18 12/19/23 09:43 Blood Pressure 136/65 12/19/23 09:43 Pulse Oximetry 97 12/19/23 09:43 Oxygen Delivery Method Room Air 12/19/23 09:43 Course Orders Ordered: Bisacodyl (Bisacodyl 5 Mg Tablet) 5 mg PO BID PRN PRN Reason: Constipation Last Admin: 12/19/23 16:55 Dose: 5 mg Documented By: MS Calcium Carbonate (Calcium Carbonate 500 Mg Tab) 1,000 mg PO Q4HR PRN PRN Reason: Dyspepsia Enoxaparin Sodium (Enoxaparin 40 Mg/0.4 Ml Syringe) 40 mg SUBCUT DAILY [facility] Hydromorphone HCl (Hydromorphone 2 Mg Tablet) 4 mg PO Q4HR PRN PRN Reason: Pain, Severe (7-10) Last Admin: 12/19/23 16:55 Dose: 4 mg Documented By: MS Sodium Chloride (Normal Saline 0.9%) 1,000 mls @ 100 mls/hr IV CONT [facility] Last Admin: 12/19/23 16:02 Dose: 100 mls/hr Documented By: MS Ketorolac Tromethamine (Ketorolac 30 Mg/Ml Vial) 30 mg IV Q6H ALEKS Stop: 12/20/23 21:01 Last Admin: 12/19/23 16:00 Dose: 30 mg Documented By: MS Naloxone HCl (Naloxone 0.4 Mg/Ml Vial) 0.2 mg IV Q2MIN PRN PRN Reason: Opiate Reversal Ondansetron HCl (Ondansetron 4 Mg/2 Ml Inj) 4 mg IV Q8HR PRN PRN Reason: Nausea And Vomiting Oxycodone HCl (Oxycodone Ir 5 Mg Tablet) 5 mg PO Q3H PRN PRN Reason: Pain, Moderate (4-6) Last Admin: 12/19/23 18:55 Dose: 5 mg Documented By: MS Polyethylene Glycol (Polyethylene Glycol 3350 17 Gm Powd.Pack) 17 gm PO DAILY [facility] Tamoxifen Citrate (Tamoxifen 10 Mg Tablet) 10 mg PO DAILY [facility] Vitamin D (Cholecalciferol (Vitamin D3) 1,000 Unit Tablet) 2,000 unit PO DAILY [facility] Discontinued Medications Morphine Sulfate (Morphine 4 Mg/Ml Inj) 4 mg IV NOW ONE Stop: 12/19/23 10:15 Last Admin: 12/19/23 10:39 Dose: 4 mg Documented By: RB Morphine Sulfate (Morphine 4 Mg/Ml Inj) 4 mg IV NOW ONE Stop: 12/19/23 12:13 Last Admin: 12/19/23 12:28 Dose: Not Given Documented By: RLS Morphine Sulfate (Morphine 4 Mg/Ml Inj) 4 mg IV NOW ONE Stop: 12/19/23 12:16 Last Admin: 12/19/23 12:22 Dose: 4 mg Documented By: MAURY Ondansetron HCl (Ondansetron 4 Mg/2 Ml Inj) 4 mg IV NOW PRN PRN Reason: Nausea And Vomiting Last Admin: 12/19/23 10:38 Dose: 4 mg Documented By: RB Ondansetron HCl (Ondansetron 4 Mg Odt) 4 mg PO NOW PRN PRN Reason: Nausea And Vomiting Ondansetron HCl (Ondansetron 4 Mg/2 Ml Inj) 4 mg IV NOW ONE Stop: 12/19/23 12:13 Last Admin: 12/19/23 12:29 Dose: Not Given Documented By: MAURY Ondansetron HCl (Ondansetron 4 Mg/2 Ml Inj) 4 mg IV NOW ONE Stop: 12/19/23 12:16 Last Admin: 12/19/23 12:21 Dose: 4 mg Documented By: MAURY Vital Signs Vital signs: Vital Signs - 8 hr 12/19/23 12:30 12/19/23 12:30 12/19/23 13:00 Pulse Rate 69 73 Respiratory Rate 20 25 H Blood Pressure 144/70 H Pulse Oximetry 97 Oxygen Delivery Method 12/19/23 13:00 Pulse Rate Respiratory Rate Blood Pressure 147/77 H Pulse Oximetry Oxygen Delivery Method Room Air MDM - Abdominal Pain Differential Diagnosis Differential diagnosis: Likely abdominal pain, small bowel obstruction and other ( constipation, pneumoperitoneum) Condition is:: Inadequately Controlled Medical Records Attestation: I reviewed the patient's medical records. Lab Data Attestation: I reviewed the patient's lab results. 12/19/23 09:58 12/19/23 09:58 Labs: Lab Results 12/19/23 12/19/23 Range/Units 09:58 10:21 WBC 12.2 H (4.5-11.0) X10^3/uL RBC 4.73 (4.0-5.2) X10^6/uL Hgb 13.5 (12.0-16.0) g/dL Hct 41.5 (36-46) % MCV 87.7 (80-100) fL MCH 28.6 (26-34) PG MCHC 32.6 (30-36) % RDW 13.6 (11.6-14.8) % Plt Count 120 L (150-400) X10^3/uL Neut % (Auto) 79.9 H (50-75) % Lymph % (Auto) 14.3 L (25-40) % [place] % (Auto) 4.3 (3-14) % Eos % (Auto) 1.1 L (2-4) % Baso % (Auto) 0.4 (0-2) % Neut # (Auto) 9700 H (4700-9839) /uL Lymph # (Auto) 1700 (3354-5885) /uL [place] # (Auto) 500 (0-900) /uL Eos # (Auto) 100 (0-450) /uL Baso # (Auto) 0 (0-100) /uL Sodium 136 L (137-145) mmol/L Potassium 4.4 (3.4-5.1) mmol/L Chloride 107 (98-107) mmol/L Carbon Dioxide 22 (22-32) mmol/L BUN 15 (7-17) mg/dL Creatinine 0.68 (0.52-1.04) mg/dL Estimated GFR > 60 (>60) mL/min BUN/Creatinine Ratio 22.1 H (6-22) Glucose 112 H (80-110) mg/dL Calcium 9.6 (8.4-10.2) mg/dL Total Bilirubin 0.9 (0.2-1.3) mg/dL AST 24 (14-36) IU/L ALT 36 H (<35) IU/L Alkaline Phosphatase 55 (38-126) U/L Total Protein 7.4 (6.3-8.2) g/dL Albumin 4.3 (3.5-5.0) g/dL Globulin 3.1 (1.7-4.1) g/dL Albumin/Globulin Ratio 1.4 (1.0-2.8) Lipase 38 (23-300) U/L Urine Color Yellow Urine Appearance Clear Urine pH 7.0 (4.5-8.0) Ur Specific [place] 1.015 (1.000-1.035) Urine Protein Negative (Negative) Urine Glucose (UA) Negative (Negative) g/dL Urine Ketones Trace H (NEGATIVE) Urine Occult Blood Trace-intact (Negative) Urine Nitrate Negative (Negative) Urine Bilirubin Negative (NEGATIVE) Urine Urobilinogen 1.0 (0.2) E.U./dL Ur Leukocyte Esterase Trace H (NEGATIVE) Urine RBC 1-5/hpf (0-5/HPF) Urine WBC 1-5/hpf (0-5/HPF) Ur Squamous Epith Cells 1-5 /hpf D (0-5/HPF) Urine Bacteria None seen (None) Ur Culture Indicated? Cult not indicated Vol Urine Centrifuged Low vol <10ml unspun A ECG Data Attestation: I personally reviewed and interpreted this ECG as follows: Interpretation: EKG interpreted by ED physician, cyanosis 71 beats per minute, QTC 425, normal axis, nonspecific ST changes no STEMI MDM Narrative Medical decision making narrative: patient is a 68-year-old female presenting for worsening abdominal pain status post cholecystectomy and dilation curettage performed on 12/14/2023, she has seen and been treated outpatient by her PCP for symptom control, however is having worsening abdominal pain therefore was sent into the emergency department. CT scan only showing constipation no other acute findings, lab work unremarkable, however patient having persistent abdominal pain despite multiple doses of IV analgesics here, as well as persistent nausea and vomiting despite multiple administration of IV antiemetics. Patient has already tried outpatient symptomatic control, and is unable to tolerate p.o. liquids and solids as well as medications therefore will require admission to the hospital for further evaluate. case was discussed with hospitalist of the [facility] who accepts admission. Discharge Plan Departure Patient Disposition: Admitted as Observation Clinical Impression: Intractable abdominal pain Admit Date/Time: 12/19/23 13:20 Admit Provider: Jeimy Camilo
--- NOTE | 2023-12-19 10:15 | DI.CT.S_ITS ---
PROCEDURE: CT ABDOMEN PELVIS W CON INDICATIONS: s/p cholestectomy and D C, now with worsenign pain TECHNIQUE: After the administration of intravenous contrast, axial sections acquired from the lung bases to the pubic symphysis. Coronal and sagittal reformats were performed. For radiation dose reduction, the following was used: automated exposure control, adjustment of mA and/or kV according to patient size. COMPARISON: Ultrasound abdomen dated 12/18/2022. FINDINGS: Image quality: Diagnostic. Lower Chest: Mild dependent atelectasis in posterior aspect of bilateral lung bases are seen. Heart size is normal, no pericardial effusion. ABDOMEN: Liver: There is hepatomegaly. No solid mass. 1.3 cm simple appearing cyst in right hepatic lobe is seen. Gallbladder: Gallbladder is surgically absent. Biliary ducts: Mild prominence of intrahepatic biliary ducts and common bile duct within normal limits for post cholecystectomy patient. Pancreas: No ductal dilation. Spleen: Size is within normal limits. Adrenal Glands: No adrenal nodules. Kidneys and Ureters: No hydronephrosis. No solid mass. No complex renal cystic lesion which requires follow up. Stomach and Bowel: There is no bowel obstruction. No gastric or small bowel wall thickening. Large amount of fecal matter is seen throughout the colon extending to distal sigmoid colon and rectum. No gross colonic wall thickening. No abscess collection. Peritoneum: No abnormal intraperitoneal fluid. No free air. Ventral Wall: No significant ventral hernia. Abdominal Nodes: No retroperitoneal or mesenteric adenopathy by size criteria. Vessels: Aorta and inferior vena cava are normal in size. PELVIS: Pelvic Organs: Unremarkable. Bladder: No bladder wall thickening, accounting for underdistention. Pelvic Nodes: No enlarged lymph nodes. Miscellaneous: No inguinal hernias are seen. Bones: No aggressive osseous abnormality. IMPRESSION: 1. Patient is status post cholecystectomy. No abnormality is seen in gallbladder fossa. Biliary duct sizes are within normal limits for post cholecystectomy patients. 2. Hepatomegaly, no gross solid appearing hepatic lesion. Possible cyst in right hepatic lobe. 3. Moderate constipation and fecal impaction. No bowel obstruction or abnormal bowel wall thickening. No free fluid or free air. Dictated by: Estrada Carias M.D. on 12/19/2023 at 10:45 Approved by: Estrada Carias M.D. on 12/19/2023 at 10:51
[2023-12-19 10:18] LABS: Alanine Aminotransferase 36 IU/L (<35); Albumin 4.3 g/dL (3.5-5.0); Albumin Globulin Ratio 1.4 (1.0-2.8); Alkaline Phosphatase 55 U/L (38-126); Aspartate Aminotransferase 24 IU/L (14-36); BUN Creatinine Ratio 22.1 (6-22); Bilirubin Total 0.9 mg/dL (0.2-1.3); Blood Urea Nitrogen 15 mg/dL (7-17); Calcium 9.6 mg/dL (8.4-10.2); Carbon Dioxide 22 mmol/L (22-32); Chloride 107 mmol/L (98-107); Estimated Glomerular Filt Rate > 60 mL/min (>60); Globulin 3.1 g/dL (1.7-4.1); Glucose 112 mg/dL (80-110); HEMOLYSIS 23 (0-50); Lipase 38 U/L (23-300); Potassium 4.4 mmol/L (3.4-5.1); Sodium 136 mmol/L (137-145); Total Protein 7.4 g/dL (6.3-8.2)
[2023-12-19 10:32] LABS: Appearance Urine UA CLEAR; Bilirubin Urine UA NEGATIVE (NEGATIVE); Color Urine UA YELLOW; Glucose Urine UA NEGATIVE (Negative); Ketones Urine UA TRACE (NEGATIVE); Leukocyte Esterase Urine UA TRACE (NEGATIVE); Nitrite Urine UA NEGATIVE (Negative); Occult Blood Urine UA TRACE-INTACT (Negative); Protein Urine UA NEGATIVE (Negative); Specific Gravity Urine UA 1.015 (1.000-1.035)
[2023-12-19] MEDS: ONDANSETRON 4 MG/2 ML INJ IV ×2 (10:38→12:21)
[2023-12-19] MEDS: MORPHINE 4 MG/ML INJ IV ×2 (10:39→12:22)
[2023-12-19 10:58] LABS: Bacteria Urine None Seen; Culture Indicated Urine Cult Not Indicated; RBC Urine 1-5/HPF (0-5/HPF); Squamous Epithelial Cell Urine 1-5 /HPF (0-5/HPF); Urine Volume Low Vol <10mL unspun; WBC Urine 1-5/HPF (0-5/HPF)
--- NOTE | 2023-12-19 12:28 | CM.SWNOTE ---
ED SENIOR MANAGER QUALITY ASSURANCE Note SENIOR MANAGER QUALITY ASSURANCE receives consult from ED provider as patient is need of PCP follow up and Cardiology referral. SENIOR MANAGER QUALITY ASSURANCE discusses that clinics are closed today and this can be done tomorrow during business hours by ALLEN Rivera. Patient's PCP is Dr. Mistry. SENIOR MANAGER QUALITY ASSURANCE briefly meets with patient and discusses this recommendation from ED provider, ED SENIOR MANAGER QUALITY ASSURANCE to call patient regarding appts tomorrow. Patient endorses concern for her pain and addressing this issue. Plan: Patient to d/c to home upon medical clearance, ED SENIOR MANAGER QUALITY ASSURANCE to set up ED f/u PCP appt for patient and coordinate with patient tomorrow. Eleni Prasad, [employer] BUSINESS REPRESENTATIVE
--- NOTE | 2023-12-19 14:57 | P.HP_ITS ---
History of Present Illness History of Present Illness Date Patient Seen: 12/19/23 Time Patient Seen: 14:57 Chief complaint: Post OP pain Narrative: Pt is a 68yo woman with hx of breast cancer, POD #5 s/p cholecystectomy and D&C for postmenopausal bleeding who presented with intractable abdominal pain. The pts surgery was without complications. Postoperatively her pain was initially well controlled, with her only requiring minimal dosing of narcotic pain medication. She states that she was virtually pain free for 36hrs after surgery. She then had several episodes of severe abdominal pain over the next 2-3 days, some enough that it felt like she was having a baby. The pt denies any nausea, vomiting, blood in her stool, increasing vaginal bleeding, abnormal vaginal discharge, chest pain, SOB, dysuria during this time period. The pain was typically able to eventually be controlled by her oral hydrocodone. Early this morning she woke with severe pain. She took a hydrocodone, and the pain improved but did not fully go away. The pain returned again, and her oral medications did not help. This is when she came to the ED for evaluation. Since being in the hospital, the pt has had multiple episodes of emesis. Prior to today, she was eating and drinking fluids. The pt reports that her BMs have been more irregular than usual and in general smaller, but her last more normally sized BM was on 12/16. The pt reports that yesterday she did about 2 hours of more active movement at the [employer], but has otherwise been taking it relatively easy at home. In the ED, lab work was unrevealing. CT scan of her abdomen showed only moderate constipation. COUNTS INCLUDE 234 BEDS AT THE [facility] Medical History Use of tamoxifen (Nolvadex) Postmenopausal bleeding Abnormal uterine bleeding (AUB) Microscopic hematuria Surgical History History of tonsillectomy Social History household members: spouse Smoking Status: Never smoker alcohol intake: former Meds Home Medications and Allergies Home Medications Medication Instructions Recorded Confirmed Type serrapeptase 20,000 mg PO DAILY 10/13/23 12/19/23 History tamoxifen 10 mg tablet 10 mg PO ONCE 10/13/23 12/19/23 History hydrocodone 5 mg-acetaminophen 325 1 tab PO Q8H PRN pain #10 tabs 12/14/23 12/19/23 Rx mg tablet cholecalciferol (vitamin D3) 50 50 mcg PO DAILY 12/19/23 12/19/23 History mcg (2,000 unit) capsule (Vitamin D3) multivitamin 1 tab PO DAILY 12/19/23 12/19/23 History Allergies Allergy/AdvReac Type Severity Reaction Status Date / Time Sulfa (Sulfonamide Allergy Severe Rash Verified 12/14/23 06:42 Antibiotics) ciprofloxacin Allergy Verified 12/14/23 06:42 Exam Vital Signs (past 8 hours): - 12/19/23 09:43 12/19/23 09:51 12/19/23 10:00 Temperature 98.9 F Pulse Rate 69 71 73 Respiratory Rate 18 39 H 35 H Blood Pressure 136/65 Pulse Oximetry 97 96 95 Oxygen Delivery Method Room Air 12/19/23 10:00 12/19/23 10:21 12/19/23 10:21 Temperature Pulse Rate 66 Respiratory Rate 19 Blood Pressure 137/73 149/67 H Pulse Oximetry 97 Oxygen Delivery Method 12/19/23 10:34 12/19/23 10:35 12/19/23 10:35 Temperature Pulse Rate 62 62 Respiratory Rate 23 16 Blood Pressure 146/69 H Pulse Oximetry 96 97 Oxygen Delivery Method 12/19/23 11:00 12/19/23 11:00 12/19/23 11:30 Temperature Pulse Rate 74 Respiratory Rate 23 Blood Pressure 137/63 134/63 Pulse Oximetry 95 Oxygen Delivery Method 12/19/23 11:30 12/19/23 12:00 12/19/23 12:11 Temperature Pulse Rate 65 71 62 Respiratory Rate 23 32 H 22 Blood Pressure Pulse Oximetry 94 98 95 Oxygen Delivery Method Room Air 12/19/23 12:11 12/19/23 12:30 12/19/23 12:30 Temperature Pulse Rate 69 Respiratory Rate 20 Blood Pressure 133/69 144/70 H Pulse Oximetry Oxygen Delivery Method 12/19/23 13:00 12/19/23 13:00 12/19/23 13:30 Temperature Pulse Rate 73 78 Respiratory Rate 25 H 28 H Blood Pressure 147/77 H Pulse Oximetry 97 95 Oxygen Delivery Method Room Air 12/19/23 13:31 12/19/23 13:31 Temperature Pulse Rate 80 Respiratory Rate 41 H Blood Pressure 178/81 H Pulse Oximetry 95 Oxygen Delivery Method Oxygen Delivery Method Room Air Narrative Exam Narrative: Gen: NAD, sitting at side of bed, appears uncomfortable HEENT: normocephalic, atraumatic Neck: no LAD CV: RRR, no murmurs Resp: clear to auscultation bilaterally Abd: soft, nondistended, normoactive bowel sounds, tender in RUQ without rebound/guarding/rigidity Ext: no edema Neuro: no gross deficits Objective Labs 12/19/23 09:58 12/19/23 09:58 Labs: Laboratory Results - last 24 hr 12/19/23 12/19/23 09:58 10:21 WBC 12.2 H RBC 4.73 Hgb 13.5 Hct 41.5 MCV 87.7 MCH 28.6 MCHC 32.6 RDW 13.6 Plt Count 120 L Neut % (Auto) 79.9 H Lymph % (Auto) 14.3 L [place] % (Auto) 4.3 Eos % (Auto) 1.1 L Baso % (Auto) 0.4 Neut # (Auto) 9700 H Lymph # (Auto) 1700 [place] # (Auto) 500 Eos # (Auto) 100 Baso # (Auto) 0 Sodium 136 L Potassium 4.4 Chloride 107 Carbon Dioxide 22 BUN 15 Creatinine 0.68 Estimated GFR > 60 BUN/Creatinine Ratio 22.1 H Glucose 112 H Calcium 9.6 Total Bilirubin 0.9 AST 24 ALT 36 H Alkaline Phosphatase 55 Total Protein 7.4 Albumin 4.3 Globulin 3.1 Albumin/Globulin Ratio 1.4 Lipase 38 Urine Color Yellow Urine Appearance Clear Urine pH 7.0 Ur Specific [place] 1.015 Urine Protein Negative Urine Glucose (UA) Negative Urine Ketones Trace H Urine Occult Blood Trace-intact Urine Nitrate Negative Urine Bilirubin Negative Urine Urobilinogen 1.0 Ur Leukocyte Esterase Trace H Urine RBC 1-5/hpf Urine WBC 1-5/hpf Ur Squamous Epith Cells 1-5 /hpf D Urine Bacteria None seen Ur Culture Indicated? Cult not indicated Vol Urine Centrifuged Low vol <10ml unspun A Assessment & Plan Assessment & Plan narrative: Pt is a 68yo woman with hx of breast cancer, POD #5 s/p cholecystectomy and D&C for postmenopausal bleeding who presented with intractable abdominal pain. The pt has unfortunately failed outpatient medications, and her pain only intensified in the ED with IV Morphine. 1) Abdominal pain s/p cholecystectomy and D&C: No evidence of post-operative complication on CT scan. - Zofran PRN for nausea - Oxycodone, Dilaudid PRN for pain control - Scheduled IV Toradol for pain control 2) Constipation: Most likely cause of increasing pain at this point. - Dulcolax BID - Miralax daily - Fleet enema if needed 3) Hx of breast cancer: Pt reports currently in remission - Continue home Tamoxifen FEN: General diet as tolerated DVT ppx: Lovenox Code: Full Dispo: Pending adequate pain control on PO medications. Hopeful an d/c tomorrow. Time-Based Coding :: [TOTAL MINUTES] spent with patient and on the chart (including review of chart, obtaining history, exam, reviewing outside data, placing orders, documenting exam and treatment plan, and counseling patient) on [DATE]. PROFEE Charge Codes Initial inpatient/observation care: 61428
[2023-12-19] MEDS: KETOROLAC 30 MG/ML VIAL IV (16:00)
[2023-12-19] MEDS: SODIUM CHLORIDE 0.9% 1,000 ML 100 ML IV (16:02)
[2023-12-19] MEDS: BISACODYL 5 MG TABLET PO (16:55)
[2023-12-19] MEDS: HYDROMORPHONE 2 MG TABLET 4 MG PO (16:55)
[2023-12-19] MEDS: OXYCODONE IR 5 MG TABLET PO ×2 (18:55→23:12)
--- NOTE | 2023-12-19 19:46 | PC.NURSE ---
Late entry: Pt arrived to the floor from the ED via gurney. Pt was able to self transfer from ED gurney into the hospital bed. Pt A&Ox4. Pt currently wearing her personal nightgown and pt declined wearing a hospital gown. This RN explained that that if an emergency were to happen and if the gown needed to be cut off would she be OK with that and pt stated I'm fine if you need to cut my nightgown to save my life. Pt currently has reading glasses on the top of her head. Pt A&Ox4, able to make needs known. Pt is independent in room. Pt also has her cellphone with her and reports that her will bringing other supplies and chargers later tonight. Pt was oriented to the room, how to the use the call roa for needs and how to use the call roa to turn the lights on and off, page the nurse, and how to turn on the TV to which the pt verbalized understanding.
[2023-12-20] VITALS: BP 109/51; PULSE 70; RESP 18; TEMP 37.3; O2SAT 93
[2023-12-20] MEDS: KETOROLAC 30 MG/ML VIAL IV ×2 (01:39→08:40)
[2023-12-20] MEDS: SODIUM CHLORIDE 0.9% 1,000 ML 100 ML IV (01:45)
[2023-12-20 04:00] VITALS: BP 106/41; PULSE 69; RESP 20; TEMP 37.1; O2SAT 94
[2023-12-20] MEDS: OXYCODONE IR 5 MG TABLET PO ×2 (05:42→11:10)
[2023-12-20 08:00] VITALS: BP 131/66; PULSE 66; RESP 16; TEMP 36.4; O2SAT 95
[2023-12-20 08:06] LABS: Add Manual Diff / Slide Review NO; Basophils Absolute Auto 0 /uL (0-100); Basophils Percent Auto 0.3 % (0-2); Eosinophils Absolute Auto 200 /uL (0-450); Eosinophils Percent Auto 2.1 % (2-4); Hematocrit 33.1 % (36-46); Hemoglobin 10.8 g/dL (12.0-16.0); Lymphocytes Absolute Auto 1600 /uL (1100-4500); Mean Corpuscular HGB Conc 32.6 % (30-36); Mean Corpuscular Hemoglobin 28.8 PG (26-34); Mean Corpuscular Volume 88.3 fL (80-100); Monocytes Absolute Auto 800 /uL (0-900); Monocytes Percent Auto 8.2 % (3-14); Neutrophils Absolute Auto 6800 /uL (1500-7000); Neutrophils Percent Auto 72.4 % (50-75); Platelet Count 156 X10^3/uL (150-400); Red Blood Cell Count 3.74 X10^6/uL (4.0-5.2); Red Cell Distribution Width 13.8 % (11.6-14.8); White Blood Cell Count 9.3 X10^3/uL (4.5-11.0)
--- NOTE | 2023-12-20 08:15 | P.DS_ITS ---
History of Present Illness History of Present Illness Date Patient Seen: 12/20/23 Chief complaint: Post OP pain Narrative: Per Dr. Camilo's H&P: Pt is a 68yo woman with hx of breast cancer, POD #5 s/p cholecystectomy and D&C for postmenopausal bleeding who presented with intractable abdominal pain. The pts surgery was without complications. Postoperatively her pain was initially well controlled, with her only requiring minimal dosing of narcotic pain medication. She states that she was virtually pain free for 36hrs after surgery. She then had several episodes of severe abdominal pain over the next 2-3 days, some enough that it felt like she was having a baby. The pt denies any nausea, vomiting, blood in her stool, increasing vaginal bleeding, abnormal vaginal discharge, chest pain, SOB, dysuria during this time period. The pain was typically able to eventually be controlled by her oral hydrocodone. Early this morning she woke with severe pain. She took a hydrocodone, and the pain improved but did not fully go away. The pain returned again, and her oral medications did not help. This is when she came to the ED for evaluation. Since being in the hospital, the pt has had multiple episodes of emesis. Prior to today, she was eating and drinking fluids. The pt reports that her BMs have been more irregular than usual and in general smaller, but her last more normally sized BM was on 12/16. The pt reports that yesterday she did about 2 hours of more active movement at the [employer], but has otherwise been taking it relatively easy at home. In the ED, lab work was unrevealing. CT scan of her abdomen showed only moderate constipation. Discharge Providers Provider Date of admission: 12/19/23 13:20 Discharge Date: 12/20/23 Primary care physician: Chloé Mistry MD Discharge provider: Chloé Mistry MD Summary Hospital Course Hospital Course: Pt is a 68yo woman with hx of breast cancer, POD #6 s/p cholecystectomy and D&C for postmenopausal bleeding who presented with intractable abdominal pain. Admitted overnight for pain control as below. 1) Abdominal pain s/p cholecystectomy and D&C: No evidence of post-operative complication on CT scan, did show significant stool burden. Large BM overnight after bowel regimen with improvement in her pain. Nausea resolved. Received IVF overnight but stopped the following morning and taking good PO. Received dilaudid once, using only oxycodone on day of DC. Patient with hydrocodone at home already post operatively - will continue this. She has f/u with surgeon next week and PCP on Wednesday. 2) Constipation: Most likely cause of increasing pain, see above. Continue bowel regimen at home of suppoistory and miralax daily. 3) Hx of breast cancer: Pt reports currently in remission, continued on home Tamoxifen. 4) Abnormal UA: h/o hematuria previousy - discussed repeat UA in October and if persistent would refer to urology. Now with possible UTI again. Urine sent for culture - started on Macrobid. Will need repeat UA after completed and potentially referral. 5) Anemia: likely dilutional. Serial Hgb stable, clinically no signs of active bleeding and imaging was reassuring. Status at Discharge Cognitive/behavioral status at discharge: oriented Functional status at discharge: independent ambulation Time Spent with Patient Time spent: Greater than 30 minutes Exam Vital Signs (past 8 hours): - 12/20/23 04:00 Temperature 98.8 F Pulse Rate 69 Respiratory Rate 20 Blood Pressure 106/41 L Pulse Oximetry 94 Oxygen Delivery Method Room Air Oxygen Flow Rate 0 Narrative Exam Narrative: Gen: NAD, sitting at side of bed, NAD, non toxic HEENT: normocephalic, atraumatic. EOMI, nrl external ears and nares. MMM Neck: supple CV: RRR, no murmurs Resp: clear to auscultation bilaterally Abd: soft, nondistended, normoactive bowel sounds, very mild TTP in epigastric and RUQ regions. No rebound or guarding. Incision sites well healing. Ext: no edema Neuro: no gross deficits Objective Labs 12/20/23 11:20 12/20/23 07:50 Labs: Laboratory Results - last 24 hr 12/19/23 12/19/23 12/20/23 09:58 10:21 07:50 WBC 12.2 H 9.3 RBC 4.73 3.74 L Hgb 13.5 10.8 L Hct 41.5 33.1 L MCV 87.7 88.3 MCH 28.6 28.8 MCHC 32.6 32.6 RDW 13.6 13.8 Plt Count 120 L 156 Neut % (Auto) 79.9 H 72.4 Lymph % (Auto) 14.3 L 17.0 L [place] % (Auto) 4.3 8.2 Eos % (Auto) 1.1 L 2.1 Baso % (Auto) 0.4 0.3 Neut # (Auto) 9700 H 6800 Lymph # (Auto) 1700 1600 [place] # (Auto) 500 800 Eos # (Auto) 100 200 Baso # (Auto) 0 0 Sodium 136 L Potassium 4.4 Chloride 107 Carbon Dioxide 22 BUN 15 Creatinine 0.68 Estimated GFR > 60 BUN/Creatinine Ratio 22.1 H Glucose 112 H Calcium 9.6 Total Bilirubin 0.9 AST 24 ALT 36 H Alkaline Phosphatase 55 Total Protein 7.4 Albumin 4.3 Globulin 3.1 Albumin/Globulin Ratio 1.4 Lipase 38 Urine Color Yellow Urine Appearance Clear Urine pH 7.0 Ur Specific [place] 1.015 Urine Protein Negative Urine Glucose (UA) Negative Urine Ketones Trace H Urine Occult Blood Trace-intact Urine Nitrate Negative Urine Bilirubin Negative Urine Urobilinogen 1.0 Ur Leukocyte Esterase Trace H Urine RBC 1-5/hpf Urine WBC 1-5/hpf Ur Squamous Epith Cells 1-5 /hpf D Urine Bacteria None seen Ur Culture Indicated? Cult not indicated Vol Urine Centrifuged Low vol <10ml unspun A [facility] Medical History Use of tamoxifen (Nolvadex) Postmenopausal bleeding Abnormal uterine bleeding (AUB) Microscopic hematuria Surgical History History of tonsillectomy Social History household members: spouse Smoking Status: Never smoker alcohol intake: former Discharge Plan Discharge Plan Patient Disposition: Home Discharge orders & Medications Prescriptions: New nitrofurantoin monohyd/m-cryst [Macrobid] 100 mg capsule 100 mg PO BID Qty: 10 0RF Rx Instructions: must administer with a meal/food Continued tamoxifen 10 mg tablet 10 mg PO ONCE serrapeptase 1,200 mg PO DAILY hydrocodone-acetaminophen 5-325 mg tablet 1 tab PO Q8H PRN (Reason: pain) Qty: 10 0RF multivitamin [Multi-Vitamins] Tablet 1 tab PO DAILY cholecalciferol (vitamin D3) [Vitamin D3] 50 mcg (2,000 unit) Capsule 50 mcg PO DAILY Follow up/Referrals: Chloé Mistry MD [Primary Care Provider] - Diet/Activity/Treatments Diet: Diet as Tolerated Diet comment: [place], progress as tolerated Activity: Continue lifting restrictions. Gradually increase walking as discussed. Continue bowel regimen at home - stool softener and miralax daily. Add Tylenol and Ibuprofen for pain as discussed. Take antibiotic until gone unless directed otherwise. Skin/Wound/Dressing Care Report to your healthcare provider any signs of infection, such as:: chills, fever and increased pain Visit Report/Discharge Packet Stand Alone Forms: Patient Portal/API, Stroke Signs & Symptoms Discharge Data Primary Care Provider: Chloé Mistry Attending Provider: Jeimy Camilo Admit Date/Time: 12/19/23 13:20 PROFEE Charge Codes Discharge inpatient/observation: 34010
[2023-12-20 08:20] LABS: Alanine Aminotransferase 27 IU/L (<35); Albumin 3.4 g/dL (3.5-5.0); Albumin Globulin Ratio 1.3 (1.0-2.8); Alkaline Phosphatase 44 U/L (38-126); Aspartate Aminotransferase 21 IU/L (14-36); BUN Creatinine Ratio 19.5 (6-22); Blood Urea Nitrogen 16 mg/dL (7-17); Calcium 8.5 mg/dL (8.4-10.2); Carbon Dioxide 20 mmol/L (22-32); Chloride 110 mmol/L (98-107); Estimated Glomerular Filt Rate > 60 mL/min (>60); Globulin 2.6 g/dL (1.7-4.1); Glucose 105 mg/dL (80-110); HEMOLYSIS < 15 (0-50); Sodium 135 mmol/L (137-145)
[2023-12-20] MEDS: ENOXAPARIN 40 MG/0.4 ML SYRINGE SUBCUT (08:34)
[2023-12-20] MEDS: CHOLECALCIFEROL (VITAMIN D3) 1,000 UNIT TABLET 2000 UNIT PO (08:34)
[2023-12-20] MEDS: TAMOXIFEN 10 MG TABLET PO (08:34)
[2023-12-20] MEDS: polyethylene glycoL 3350 17 GM POWD.PACK PO (08:34)
[2023-12-20 09:10] LABS: Bacteria Urine Moderate (10-30); RBC Urine 1-5/HPF (0-5/HPF); Squamous Epithelial Cell Urine 5-10 /HPF (0-5/HPF); Urine Volume 10mL (spun); WBC Urine 10-30/HPF (0-5/HPF)
[2023-12-20 09:11] LABS: Culture Indicated Urine Specimen Cultured
[2023-12-20 10:53] LABS: Appearance Urine UA CLOUDY; Bilirubin Urine UA 1+ (NEGATIVE); Color Urine UA ORANGE; Glucose Urine UA NEGATIVE (Negative); Ketones Urine UA NEGATIVE (NEGATIVE); Leukocyte Esterase Urine UA 1+ (NEGATIVE); Nitrite Urine UA NEGATIVE (Negative); Occult Blood Urine UA 3+ (Negative); Protein Urine UA TRACE (Negative); Specific Gravity Urine UA >=1.030 (1.000-1.035)
[2023-12-20 10:57] LABS: pH Urine UA 5.5 (4.5-8.0)
[2023-12-20 11:00] LABS: Ictotest Urine Negative (Negative)
[2023-12-20 11:51] LABS: Add Manual Diff / Slide Review NO; Basophils Absolute Auto 0 /uL (0-100); Basophils Percent Auto 0.4 % (0-2); Eosinophils Absolute Auto 300 /uL (0-450); Eosinophils Percent Auto 2.9 % (2-4); Hematocrit 32.7 % (36-46); Hemoglobin 10.8 g/dL (12.0-16.0); Lymphocytes Absolute Auto 1800 /uL (1100-4500); Lymphocytes Percent Auto 18.9 % (25-40); Mean Corpuscular HGB Conc 32.9 % (30-36); Mean Corpuscular Hemoglobin 28.9 PG (26-34); Mean Corpuscular Volume 87.8 fL (80-100); Monocytes Absolute Auto 800 /uL (0-900); Monocytes Percent Auto 8.5 % (3-14); Neutrophils Absolute Auto 6700 /uL (1500-7000); Neutrophils Percent Auto 69.3 % (50-75); Platelet Count 164 X10^3/uL (150-400); Red Blood Cell Count 3.72 X10^6/uL (4.0-5.2); Red Cell Distribution Width 13.8 % (11.6-14.8); White Blood Cell Count 9.7 X10^3/uL (4.5-11.0)
[2023-12-20 12:00] VITALS: BP 132/68; PULSE 76; RESP 18; TEMP 36.6; O2SAT 93
--- NOTE | 2023-12-20 13:52 | PC.NURSE ---
Patient is A&OX4, VSS, afebrile. She is tolerating breakfast well and denies n/v.She reports passing gas and able to have a BM. Abdomen is soft, slightly tender. She reports pain is well controlled with scheduled toradol and prn 5 mg oxycodone. She ambulates independently in the room. MD at bedside this a.m. reviewing discharge plan and orders UA with repeat labs later this a.m. After lunch MD evaluates patient and clears her to discharge home with macrobid. She verbalizes understanding of all discharge instructions, activity limitations, site care,medications, and follow up appointment. RN escorts her via w/ch [facility] to [facility] and to private vehicle at [address] [facility] this afternoon.
--- NOTE | 2023-12-20 14:14 | CM.DANOTE ---
Patient is a 68 yo female who was admitted OBS Status on 12/19/23 for Pain Mgmt and Constipation. Pt has [place] and [place] for insurance and her PCP is Dr. Chloé Mistry. EMR was reviewed. Per MD, pt with a hx of breast CA and recent cholecystectomy and D&C for menstrual bleeding. Per RN, pt ambulating independently and had bowel movement and pain is managed and after lab draws at 1100 plan is for MD to discharge pt home with outpt f/u. No concerns noted at this time. Patient resides in [facility] with her and is independent at baseline and has supportive family. Pt preference is home at discharge and does not anticipate any further needs at this time. Plan: Patient to discharge home today via spouse POV and outpt f/u and no further SW needs at this time. ALLEN Cohn Discharge Planning/Care Management Advanced directive, confirm from FAMILY Start: 12/19/23 14:12 Freq: Q24H Status: Discharge Protocol: Document 12/19/23 16:58 MS (Rec: 12/19/23 17:26 MS [id number]) Co-signed By Shameka Holm RN Advance Directive, confirm on record Time 17:24 Person contacted Francisco Noel Copy received No Advanced directive available on record No CM Discharge Assessment Start: 12/20/23 14:13 Freq: Status: Active Protocol: Document 12/20/23 14:13 BF (Rec: 12/20/23 14:14 BF [id number]) Discharge Planning Assessment Assigned Shipfitter Apprentice ALLEN Ramon DPOA/Assigned Designee Name spouse Hemanth Advance Directives? Yes Advance Directives on File No History Provided By Patient,Significant Other, Medical Record Has Patient been admitted in last 30 No days? Prior Living Arrangements House Household Members spouse Type of transporation used prior to Drives own vehicle admit Independent with ADL's Yes Is patient alert and oriented? Yes Caregiver for Another No Barriers to Discharge No Discharge Plan Home Transportation Arrangement spouse available and bedside for transport Referrals Initiated None needed Whiteboard Updated in Patient Room with Yes name and ext. # of Shipfitter Apprentice Review Status In Process Please Provide Date Initial DC 12/20/23 Assessment Was Performed Next Review Type Continued Stay Review
== END 2023-12-20 13:20 | disposition home or self-care (01) ==
LOC: ED 13:17 → AC 13:20
PROVIDERS: Admitting Provider Family Medicine; Emergency Provider Student in an Organized Health Care Education/Training Program; PCP Family Medicine; Referring Provider Student in an Organized Health Care Education/Training Program; Visit Provider Family Medicine
DX: R10.9 Unspecified abdominal pain (principal); K59.00 Constipation, unspecified; D64.9 Anemia, unspecified; Z90.49 Acquired absence of other specified parts of digestive tract
CPT/HCPCS: 36415; 74177; 80053; 81001; 81003; 81015; 83690; 85025; 87086; 93005; 96361; 96372; 96374; 96375; 96376; 99284; G0378; J1650; J1885; J2270; J2405; Q9967

== ENCOUNTER → 2024-02-10 11:27 | Outpatient (CLI) | payer MEDICARE, OTHER, SELFPAY ==
[2023-12-19 14:04] VITALS: BMI 33.4
[2024-02-10 12:46] LABS: Add Manual Diff / Slide Review NO; Basophils Absolute Auto 0 /uL (0-100); Basophils Percent Auto 0.7 % (0-2); Eosinophils Absolute Auto 200 /uL (0-450); Eosinophils Percent Auto 2.8 % (2-4); Hematocrit 38.5 % (36-46); Hemoglobin 12.7 g/dL (12.0-16.0); Lymphocytes Absolute Auto 1900 /uL (1100-4500); Lymphocytes Percent Auto 33.5 % (25-40); Mean Corpuscular HGB Conc 32.9 % (30-36); Mean Corpuscular Hemoglobin 28.7 PG (26-34); Monocytes Absolute Auto 400 /uL (0-900); Monocytes Percent Auto 6.4 % (3-14); Neutrophils Absolute Auto 3300 /uL (1500-7000); Neutrophils Percent Auto 56.6 % (50-75); Platelet Count 198 X10^3/uL (150-400); Red Blood Cell Count 4.42 X10^6/uL (4.0-5.2); Red Cell Distribution Width 13.8 % (11.6-14.8); White Blood Cell Count 5.8 X10^3/uL (4.5-11.0)
[2024-02-10 13:27] LABS: Alanine Aminotransferase 15 IU/L (<35); Albumin Globulin Ratio 1.5 (1.0-2.8); Alkaline Phosphatase 48 U/L (38-126); Aspartate Aminotransferase 19 IU/L (14-36); BUN Creatinine Ratio 19.7 (6-22); Bilirubin Total 0.5 mg/dL (0.2-1.3); Blood Urea Nitrogen 14 mg/dL (7-17); C-Reactive Protein Quant 0.6 mg/dL (<1.0); Calcium 9.3 mg/dL (8.4-10.2); Carbon Dioxide 22 mmol/L (22-32); Chloride 108 mmol/L (98-107); Estimated Glomerular Filt Rate > 60 mL/min (>60); Globulin 2.7 g/dL (1.7-4.1); Glucose 88 mg/dL (80-110); HEMOLYSIS < 15 (0-50); Potassium 4.3 mmol/L (3.4-5.1); Sodium 138 mmol/L (137-145); Total Protein 6.7 g/dL (6.3-8.2)
[2024-02-10 15:02] LABS: Appearance Urine UA CLEAR; Bilirubin Urine UA NEGATIVE (NEGATIVE); Color Urine UA YELLOW; Glucose Urine UA NEGATIVE (Negative); Ketones Urine UA NEGATIVE (NEGATIVE); Leukocyte Esterase Urine UA TRACE (NEGATIVE); Nitrite Urine UA NEGATIVE (Negative); Occult Blood Urine UA 3+ (Negative); Protein Urine UA NEGATIVE (Negative); Specific Gravity Urine UA 1.025 (1.000-1.035); Urobilinogen Urine UA 0.2 E.U./dL (0.2)
[2024-02-10 15:29] LABS: Bacteria Urine None Seen; Culture Indicated Urine Cult Not Indicated; RBC Urine 30-100/HPF (0-5/HPF); Squamous Epithelial Cell Urine 1-5 /HPF (0-5/HPF); Urine Volume 10mL (spun); WBC Urine 1-5/HPF (0-5/HPF); pH Urine UA 5.5 (4.5-8.0)
[2024-02-10 15:46] LABS: HEMOLYSIS < 15 (0-50); Iron 70 ug/dL (37-170)
[2024-02-10 16:02] LABS: Percent Iron Saturation 18 % (15-50); Total Iron Binding Capacity 392 ug/dL (265-497); Transferrin 312 mg/dL (206-381)
== END ==
PROVIDERS: PCP Family Medicine; Referring Provider Family Medicine; Visit Provider Family Medicine
DX: C79.81 Secondary malignant neoplasm of breast (principal); R31.29 Other microscopic hematuria; N93.9 Abnormal uterine and vaginal bleeding, unspecified; Z79.810 Long term (current) use of selective estrogen receptor modulators (SERMs)
CPT/HCPCS: 36415; 80053; 81001; 83540; 83550; 85025; 86140

== ENCOUNTER → 2024-02-11 11:54 | Outpatient (CLI) | payer MEDICARE, OTHER, SELFPAY ==
[2023-12-19 14:04] VITALS: BMI 33.4
== END ==
PROVIDERS: PCP Family Medicine; Visit Provider Family Medicine
DX: Z87.440 Personal history of urinary (tract) infections (principal); R31.9 Hematuria, unspecified; Z87.448 Personal history of other diseases of urinary system
CPT/HCPCS: 87086

== ENCOUNTER → 2024-02-23 08:23 | Outpatient (CLI) | payer MEDICARE, OTHER, SELFPAY ==
[2023-12-19 14:04] VITALS: BMI 33.4
== END ==
PROVIDERS: PCP Family Medicine; Visit Provider Urology
DX: R31.0 Gross hematuria (principal); R39.9 Unspecified symptoms and signs involving the genitourinary system
CPT/HCPCS: 81002; 87077; 87086; 87147; 99213

== ENCOUNTER → 2024-04-11 10:18 | Outpatient (CLI) | payer MEDICARE, OTHER, SELFPAY ==
[2023-12-19 14:04] VITALS: BMI 33.4
[2024-04-11 11:41] LABS: Cholesterol 178 mg/dL (140-199); HDL Cholesterol 73 mg/dL (40-60); LDL Cholesterol Calculated 76 mg/dL (<100); Triglycerides 146 mg/dL (35-150)
[2024-04-11 12:09] LABS: TSH w/ Reflex to FT4 2.17 uIU/mL (0.47-4.68)
== END ==
PROVIDERS: PCP Family Medicine; Referring Provider Family Medicine; Visit Provider Family Medicine
DX: R16.0 Hepatomegaly, not elsewhere classified (principal); R31.0 Gross hematuria; Z90.49 Acquired absence of other specified parts of digestive tract; R10.9 Unspecified abdominal pain; Z79.810 Long term (current) use of selective estrogen receptor modulators (SERMs); N95.0 Postmenopausal bleeding; R87.619 Unspecified abnormal cytological findings in specimens from cervix uteri; Z78.0 Asymptomatic menopausal state
CPT/HCPCS: 36415; 80061; 84443

== ENCOUNTER → 2024-04-14 14:31 | Outpatient (CLI) | payer MEDICARE, OTHER, SELFPAY ==
[2023-12-19 14:04] VITALS: BMI 33.4
--- NOTE | 2024-04-14 14:34 | DI.CT.S_ITS ---
PROCEDURE: CT CHEST W CON INDICATIONS: Hepatomegaly TECHNIQUE: After the administration of intravenous contrast, 5 mm thick sections acquired from the pulmonary apices to the posterior costophrenic angles. 1 mm axial lung, 5 mm thick coronal and sagittal reformats and 7 mm axial MIP were acquired. For radiation dose reduction, the following was used: automated exposure control, adjustment of mA and/or kV according to patient size. COMPARISON: None. FINDINGS: Image quality: Excellent Lungs: No pleural effusion pneumothorax. No pulmonary edema or focal consolidation. No suspicious pulmonary nodule. Mediastinal/soft tissue findings: No calcification of the thoracic aorta. No thoracic aortic aneurysm. No saddle pulmonary embolism. Heart is normal in size. No pericardial effusion. No coronary artery calcification. No mediastinal, hilar or axillary lymphadenopathy. Calcification versus surgical clips in the right lateral breast. Upper abdomen: 1.4 cm hypoenhancing lesion in hepatic segment 4A, favored to represent a liver cyst. Subcentimeter mildly hypo enhancing lesion in hepatic segment 4A/8, too small to be characterized. The main portal vein is patent. Bones: No suspicious lytic or blastic lesion. IMPRESSION: 1. No acute lung finding. 2. No suspicious pulmonary nodule. Dictated by: Mara Coughlin M.D. on 04/14/2024 at 17:07 Approved by: Mara Coughlin M.D. on 04/14/2024 at 17:17
--- NOTE | 2024-04-14 14:34 | DI.CT.S_ITS ---
PROCEDURE: CT IVP A/P W/WO INDICATIONS: Hepatomegaly TECHNIQUE: Optional 5 mm thick noncontrast images acquired from the diaphragm to the symphysis pubis. After the administration of intravenous contrast, 5 mm thick images acquired from the diaphragm to the symphysis pubis after a 10-minute delay. 2 mm thick coronal and sagittal reformats were then performed of the kidneys and ureters. For radiation dose reduction, the following was used: automated exposure control, adjustment of mA and/or kV according to patient size. COMPARISON: [facility], CT, CT ABDOMEN PELVIS W CON, 12/19/2023, 10:24. FINDINGS: Image quality: Diagnostic. Kidneys and Ureters: Both kidneys are normal in size, without hydronephrosis or nephrolithiasis. No perinephric fat stranding. There is normal bilateral renal enhancement. Renal calyces appear normal in morphology when filled with contrast. Opacified portions of both ureters demonstrate normal caliber Bladder: Bladder wall thickness is normal. No calcified bladder stones. OTHER: Lower chest: Unremarkable. Liver: No solid mass. Small water density cyst again seen posterior right hepatic lobe. The hepatic volume is enlarged, previously the case. The liver measures over 20 cm craniocaudad considering morphology of the liver inferior aspect. Mild heterogeneity of the hepatic enhancement. The spleen is at the upper limits of normal. Gallbladder: Prior cholecystectomy. Biliary ducts: No biliary dilation. Pancreas: No ductal dilation. Spleen: Size is within normal limits. Adrenal Glands: No adrenal nodules. Stomach and Bowel: Normal colonic caliber, without significant wall thickening. Peritoneum: Generalized colonic obstipation Ventral Wall: No hernia. Abdominal Nodes: No retroperitoneal or mesenteric adenopathy by size criteria. Vessels: Aorta and inferior vena cava are normal in size. PELVIS: Pelvic Organs: Unremarkable. Pelvic Nodes: No enlarged lymph nodes. Miscellaneous: No inguinal hernias are seen. Generalized colonic obstipation Bones: No aggressive osseous abnormality. IMPRESSION: Hepatomegaly again seen, spleen size at upper limits of normal. Prior cholecystectomy. No hepatic mass lesion found. Mild hepatic parenchymal heterogeneity which can result from fatty infiltration. Ascites or varices are not found. Again noted is generalized colonic obstipation without intestinal obstruction. Dictated by: Jonathan Yeager M.D. on 04/14/2024 at 16:27 Approved by: Jonathan Yeager M.D. on 04/14/2024 at 16:51
[2024-04-14 15:16] LABS: Estimated Glomerular Filt Rate > 60 mL/min (>60)
== END ==
PROVIDERS: Radiology Diagnostic Radiology; PCP Family Medicine; Referring Provider Family Medicine; Visit Provider Family Medicine
DX: N93.9 Abnormal uterine and vaginal bleeding, unspecified (principal); K76.89 Other specified diseases of liver; R16.0 Hepatomegaly, not elsewhere classified; K59.00 Constipation, unspecified; Z90.49 Acquired absence of other specified parts of digestive tract
CPT/HCPCS: 71260; 74178; 82565; Q9967

== ENCOUNTER → 2024-04-27 14:48 | Outpatient (CLI) | payer MEDICARE, OTHER, SELFPAY ==
[2023-12-19 14:04] VITALS: BMI 33.4
== END ==
PROVIDERS: PCP Family Medicine; Visit Provider Urology
DX: R31.0 Gross hematuria (principal); R39.9 Unspecified symptoms and signs involving the genitourinary system
CPT/HCPCS: 52000; 81002; 87077; 87086; 87147

== ENCOUNTER → 2024-11-01 09:00 | Outpatient (CLI) | payer MEDICARE, OTHER, SELFPAY ==
[2023-12-19 14:04] VITALS: BMI 33.4
--- NOTE | 2024-11-01 09:03 | DI.CT.S_ITS ---
PROCEDURE: CT CHEST ABD PEL W CON INDICATIONS: cancer checkup TECHNIQUE: After the administration of intravenous contrast, 5 mm thick sections acquired from the lung apices to the symphysis. 5 mm coronal and sagittal reformats were performed, with additional 7 mm MIP reformats through the lungs. For radiation dose reduction, the following was used: automated exposure control, adjustment of mA and/or kV according to patient size. COMPARISON: [facility], CT, CT IVP A/P W/WO, 04/14/2024, 15:51. [facility], CT, CT CHEST W CON, 04/14/2024, 15:51. FINDINGS: Image quality: Excellent. CHEST: Lower Neck: No enlarged lymph nodes. Thyroid: No thyroid nodules which require sonographic follow up, per consensus guidelines. Axillae: No enlarged lymph nodes. Chest Wall: Unremarkable. Lungs and Pleura: No pneumothorax or pleural effusions. No consolidation or suspicious nodules. Heart: Heart size is normal. No pericardial effusion. Thoracic Vessels: The aorta and pulmonary arteries demonstrate normal size. Mediastinum and Lisa: No enlarged lymph nodes. Esophagus: No wall thickening. No hiatal hernia. ABDOMEN: Liver: No solid mass. Hepatomegaly without worsening is seen with reference to the comparison study from late 2023. Gallbladder: Prior cholecystectomy. Biliary ducts: No biliary dilation. Pancreas: No ductal dilation. Spleen: Size is within normal limits as was previously case. Adrenal Glands: No adrenal nodules. Kidneys and Ureters: No hydronephrosis. No solid mass. No complex renal cystic lesion which requires follow up. Several peripelvic cysts on the left. Stomach and Bowel: Normal colonic caliber, without significant wall thickening. Right-sided colonic obstipation which tapers across the transverse colon and no colonic mass lesion is suspected. Peritoneum: No abnormal intraperitoneal fluid. No free air. Ventral Wall: No significant ventral hernia. Abdominal Nodes: No retroperitoneal or mesenteric adenopathy by size criteria. Vessels: Aorta and inferior vena cava are normal in size. PELVIS: Pelvic Organs: Unremarkable. Bladder: No bladder wall thickening, accounting for underdistention. Pelvic Nodes: No enlarged lymph nodes. Miscellaneous: No inguinal hernias are seen. Bones: No aggressive osseous abnormality. IMPRESSION: No evidence of infection or neoplasm. Stable hepatomegaly, no interval development of splenomegaly. Several left-sided peripelvic cysts. Dictated by: Jonathan Yeager M.D. on 11/02/2024 at 12:57 Approved by: Jonathan Yeager M.D. on 11/02/2024 at 13:02
[2024-11-01 09:48] LABS: Estimated Glomerular Filt Rate > 60 mL/min (>60)
== END ==
PROVIDERS: PCP Family Medicine; Referring Provider Family Medicine; Visit Provider Family Medicine
DX: C79.81 Secondary malignant neoplasm of breast (principal); C80.1 Malignant (primary) neoplasm, unspecified; R16.0 Hepatomegaly, not elsewhere classified; R31.0 Gross hematuria; N28.1 Cyst of kidney, acquired; Z90.49 Acquired absence of other specified parts of digestive tract
CPT/HCPCS: 36415; 71260; 74177; 82565; Q9967

== ENCOUNTER → 2025-04-19 10:16 | Outpatient (CLI) | payer MEDICARE, OTHER, SELFPAY ==
[2023-12-19 14:04] VITALS: BMI 33.4
[2025-04-19 11:46] LABS: Blood Urea Nitrogen 13 mg/dL (7-17); Calcium 9.7 mg/dL (8.4-10.2); Carbon Dioxide 22 mmol/L (22-32); Chloride 108 mmol/L (98-107); Estimated Glomerular Filt Rate > 60 mL/min (>60); Glucose 99 mg/dL (70-99); HEMOLYSIS < 15 (0-50); Potassium 4.2 mmol/L (3.4-5.1); Sodium 139 mmol/L (137-145)
== END ==
PROVIDERS: PCP Family Medicine; Referring Provider Family Medicine; Visit Provider Family Medicine
DX: R16.0 Hepatomegaly, not elsewhere classified (principal); Z90.49 Acquired absence of other specified parts of digestive tract
CPT/HCPCS: 36415; 80048